=== PATIENT | female | born 1985 | race American Indian/Alaskan Native ===

== ENCOUNTER 2017-06-16 13:42 | Emergency (ER) | payer OTHER ==
[~2017-06-16] VITALS: Ht 157.5 cm; Wt 62.1 kg
[~2017-06-16 13:42] MED LIST: PRENATAL VITAM1 EAC7 PO
--- OUTSIDE RECORDS SUMMARY | 2017-06-16 14:28 | XMS | Clinical Summary ---
Demographics + + + | Address | [address] [facility] [address] | | | [place] [address] | + + + | Home Phone | | + + + | Preferred Language | Unknown | + + + | Marital Status | Domestic Partner | + + + | Mandaeism Affiliation | None | + + + | Race | Other Race | + + + | Ethnic Group | Not or | + + + Author + + + | Author | [facility] | + + + | Organization | [facility] | + + + | Address | Unknown | + + + | Phone | Unavailable | + + + Support + + + + + | Name | Relationship | Address | Phone | + + + + + | Elia Mercedes | ECON | [address] | | | | | [place] | | | | | [phone] | | + + + + + Care Team Providers + +------+ + | Care Commissions Analyst Name | Role | Phone | + +------+ + | None Per Patient, None Per | PP | Unavailable | | Pt | | | + +------+ + Allergies + + + + + + | Active Allergy | Reactions | Severity | Noted | Comments | | | | | Date | | + + + + + + | Cephalexin | Nausea Only | Low | 09/26/19 | | | | | | 13 | | + + + + + + Current Medications + + +---------+---------+------+------+-------+ | Prescription | Sig. | Disp. | Refills | Star | End | Statu | | | | | | t | Date | s | | | | | | Date | | | + + +---------+---------+------+------+-------+ | | Take 1 tablet by | | | | | Activ | | [id number]&Hfvbfmb-Kphu-W | mouth Daily. | | | | | e | | A 60 mg iron-1 mg | | | | | | | | tablet | | | | | | | + + +---------+---------+------+------+-------+ | oxyCODONE | Take 1 tablet by | 60 | 0 | 06/3 | | Activ | | (ROXICODONE) 5 mg | mouth Every 4 Hours | tablet | | 0/20 | | e | | immediate release | As Needed for Pain. | | | 13 | | | | tablet | | | | | | | + + +---------+---------+------+------+-------+ | docusate sodium | Take 1 capsule by | 60 | 0 | 06/3 | | Activ | | (COLACE) 100 mg | mouth 2 Times Daily | capsule | | 0/20 | | e | | capsule | As Needed for | | | 13 | | | | | Constipation. | | | | | | + + +---------+---------+------+------+-------+ | ibuprofen | Take 1 tablet by | 60 | 0 | 06/3 | | Activ | | (ADVIL;MOTRIN) 800 | mouth Every 8 Hours | tablet | | 0/20 | | e | | mg tablet | As Needed for Pain. | | | 13 | | | + + +---------+---------+------+------+-------+ | docusate sodium | Take 1 capsule (100 | 30 | 0 | 06/1 | | Activ | | (COLACE) 100 mg | mg total) by mouth 2 | capsule | | 5/20 | | e | | capsule | times daily. Hold | | | 16 | | | | | for loose stool | | | | | | + + +---------+---------+------+------+-------+ | ibuprofen | Take 1 tablet (800 | 100 | 1 | 06/1 | | Activ | | (ADVIL;MOTRIN) 800 | mg total) by mouth | tablet | | 5/20 | | e | | mg tablet | every 8 hours as | | | 16 | | | | | needed | | | | | | + + +---------+---------+------+------+-------+ | | Take 1-2 tablets by | 40 | 0 | 06/1 | | Activ | | oxyCODONE-acetaminop | mouth every 6 hours | tablet | | 5/20 | | e | | hen (PERCOCET) 5-325 | as needed | | | 16 | | | | mg per tablet | | | | | | | + + +---------+---------+------+------+-------+ | labetalol | Take 1 tablet (100 | 60 | 0 | 06/1 | | Activ | | (NORMODYNE) 100 mg | mg total) by mouth 2 | tablet | | 5/20 | | e | | tablet | times daily | | | 16 | | | + + +---------+---------+------+------+-------+ Active Problems + + + | Problem | Noted Date | + + + | Premature separation of placenta, with delivery | 09/25/2012 | + + + | Abnormality in heart rate/rhythm, delivered, with or | 09/25/2012 | | without mention of antepartum condition | | + + + | Other known or suspected abnormality, not elsewhere | 09/25/2012 | | classified, affecting management of mother, with delivered | | + + + | delivery delivered | 09/25/2012 | + + + | Anemia due to blood loss | 09/25/2012 | + + + + + | Overview: Anemia from loss at in the setting of | | anemia of . | + + Social History + + + +--------+------+ | Tobacco Use | Types | Packs/Day | Years | Date | | | | | Used | | + + + +--------+------+ | Current Some Day | Cigarettes | 0.1 | 10 | | | Smoker | | | | | + + + +--------+------+ + +---+---+---+ | Smokeless Tobacco: | | | | | Never Used | | | | + +---+---+---+ + + +---------+ + | Alcohol Use | Drinks/We | oz/Week | Comments | | | ek | | | + + +---------+ + | No | 0 | 0.0 | | | | Standard | | | | | drinks or | | | | | | | | | | equivalen | | | | | t | | | + + +---------+ + + + + | Sex Assigned at | Date Recorded | | | | + + + | Not on file | | + + + Last Filed Vital Signs + + + + | Vital Sign | Reading | Time Taken | + + + + | Blood Pressure | 139/86 | 09/12/2015 5:02 AM PDT | + + + + | Pulse | 80 | 09/29/2012 7:00 AM PDT | + + + + | Temperature | 36.7 C (98.1 F) | 09/12/2015 5:02 AM PDT | + + + + | Respiratory Rate | 15 | 09/12/2015 5:02 AM PDT | + + + + | Oxygen Saturation | 99% | 09/12/2015 5:02 AM PDT | + + + + | Inhaled Oxygen | - | - | | Concentration | | | + + + + | Weight | 66.7 kg (147 lb) | 09/12/2015 5:02 AM PDT | + + + + | Height | 157.5 cm (5' 2") | 09/12/2015 5:02 AM PDT | + + + + | Body Mass Index | 26.89 | 09/12/2015 5:02 AM PDT | + + + + Plan of Treatment + + + + + | Health Maintenance | Due Date | Last Done | Comments | + + + + + | Tobacco Cessation | | | | | Counseling | 7 | | | + + + + + | HIV Screening | | | | | | 0 | | | + + + + + | Tetanus | | | | | | 4 | | | + + + + + | Cervical Cancer | | | | | Screening | 6 | | | + + + + + | IMM Influenza (#1) | | | | | | 7 | | | + + + + + Results Not on filefrom Last 3 Months Insurance + +--------+ +--------+ + + | Payer | Benefi | Subscriber | Type | Phone | Address | | | t Plan | ID | | | | | | / | | | | | | | Group | | | | | + +--------+ +--------+ + + | [employer] | [employer] | [id number] | Medica | [phone] [address] | | | MOD[place] | | id | [id number] | [place], [place] | | | ODS | | | | [phone] | + +--------+ +--------+ + + + +--------+ +--------+ + + | Guarantor Name | Accoun | Relation to | Date | Phone | Billing Address | | | t Type | Patient | of | | | | | | | | | | + +--------+ +--------+ + + | LESA LOVE | Person | Self [birth year] | Home: | [address] | | | [place] | | 1985 | [phone] | [place] [address] | | | [place] | | | [phone] | | + +--------+ +--------+ + + Advance Directives Patient has advance directives. For more information, please contact:[email or web address] [facility] [place] [address]
--- OUTSIDE RECORDS SUMMARY | 2017-06-16 14:28 | XMS | Clinical Summary ---
Demographics + + + | Address | [address] | | | [place] [address] | + + + | Home Phone | | + + + | Preferred Language | Unknown | + + + | Marital Status | Domestic Partner | + + + | Temple Affiliation | None | + + + [...] [place] | | | | | [phone] | | + + + + + Care Team Providers + +------+ + | Care Banking Assistant Name | Role | Phone | + [...] | | | | Activ | | [id number]&Ahjhhrn-Huys-L | mouth Daily. | | | | [...] [employer] | [employer] | [id number] | Medica | [phone] | [address] | | | MOD[place] | | id | [id number] | [place], [place] | | | ODS | | | | [phone] | + +--------+ +--------+ + + + +--------+ +--------+ + + | Guarantor Name | Accoun | Relation to | Date | Phone | Billing Address | | | t Type | Patient | of | | | | | | | | | | + +--------+ +--------+ + + | LESA LOVE | Person | Self | [birth year] | Home: | [address] [facility] | | | [place] | | 1985 | [phone] | [place] [address] | | | [place] | | | [phone] | | + +--------+ +--------+ + + Advance Directives Patient has advance directives. For more information, please contact:#[email or web address] [facility] [place] [address]
== END 2017-06-16 16:21 | disposition home or self-care (01) ==
LOC: ED 13:42
DX: O21.9 Vomiting of pregnancy, unspecified (principal); O99.89 Other specified diseases and conditions complicating pregnancy, childbirth and the puerperium; R05 Cough; O99.331 Smoking (tobacco) complicating pregnancy, first trimester; F17.200 Nicotine dependence, unspecified, uncomplicated; Z88.1 Allergy status to other antibiotic agents
CPT/HCPCS: 71046; 80053; 81001; 83690; 84703; 85025; 87502; 96374; 99283; J2405; J7120

== ENCOUNTER 2018-08-22 19:31 | Observation (INO) | payer OTHER ==
[~2018-08-22] VITALS: Ht 157.5 cm; Wt 67.1 kg
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
--- NOTE | 2018-08-22 23:22 | NUR ---
ADMISSION COMPLETED. PATIENT ORIENTED TO ROOM. FLOOR, AND CALL LIGHT. ALL PATIENTS QUESTIONS ANSWERED. PATIENT DENIES ANY NEEDS AT THIS TIME. MERRICK PATIENTS PRIMARY RN IS IN THE ROOM TO ASSES PATIENT AT THIS TIME. CALL LIGHT IN REACH.
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
--- NOTE | 2018-08-23 02:49 | NUR ---
REPOSITIONED IN BED, C/O MILD ABD CRAMPING, NO VAGINAL BLEEDING NOTED, F/C PATENT, VOIDING LARGE AMOUNT OF CLEAR URINE. AWAKE, DENIES NEED FOR PAIN MEDS AT THIS TIME, CONTINUES TO DECLINE SCDS LEGS ARE VERY TENDER. LACERATION L ELBOW, R INNER KNEE AREA, AND SCRAPES ALL OVER ARMS AND LEGS HEALING. TOLERATING CLEAR LIQUIDS WELL. NO REQUETS, COOPERATIVE WITH ASSESSMENT.
--- NOTE | 2018-08-23 06:02 | NUR ---
DR SALCEDO NOTIFIED VIA PHONE R/T CLARIFICATION OF MOTRIN ORDER AND CXR PT IS . 'OK DC MOTRIN, YES DO GET CXR I ORDER IR". DI DEPT NOTIFIED. PT NOTIFIED, CONTINUES TO C/O VERY TENDER/PAINFUL LEGS WITH TOUCH, STILL DECLINING SCDS. TOLERATING CLEAR FLUIDS
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
--- NOTE | 2018-08-23 06:56 | NUR ---
back from di. c/o 08/06 generalized pain, medicated with morphine 4mg IV.
--- NOTE | 2018-08-23 07:45 | NUR ---
REPORT RECEIVED FROM FRACISCO SIN. PT AWAKE AND TALKING. DENIES ABD. PAIN. PT REFUSES SCD'S, STATES HER LEGS ARE TOO PAINFUL. REMINDED OF IMPORTANCE OF THEM. CASTILLO DRAINING LIGHT YELLOW URINE.
--- NOTE | 2018-08-23 08:34 | NUR ---
PATIENT IN BED RESTING, REFUSED TO GET UP TO CHAIR. CALL LIGHT IN REACH. NO FURTHER NEEDS AT THIS TIME.
--- NOTE | 2018-08-23 09:08 | NUR ---
CALLED PHARM TO VERIFY PEPCID WAS SAFE TO GIVE IN 1ST TRIMESTER. GILMAR PRINTED OUT LITURATURE THAT IT WAS.
--- NOTE | 2018-08-23 09:21 | NUR ---
ADMINISTERED MORNING MEDS. PT STATES SHE IS FEELING OK AND APPEARS DROWSY STILL. PT DENIES CRAMPING OR BLEEDING, NONE NOTED.
--- NOTE | 2018-08-23 09:44 | NUR ---
NOTIFIED [place] [employer]...CALLED [place] [employer] H[employer] MANDATORY ASSOCIATE PROFESSOR OF CRIMINAL JUSTICE TO REPORT PT HAVING POSITIVE LABS FOR ETOH, THC AND METH, WHILE 9 MONTHS . SPOKE WITH SAYRA JEONG.
--- NOTE | 2018-08-23 10:12 | NUR ---
PT AWAKE AND ASKING FOR FOOD. GIVEN JELLO AND CHICKEN BROTH. PT STATES SHE FEELS "OK" AND DENIES FURTHER CONCERNS. CONTINUES TO DECLINE CLEANING OF ELBOW AND SCD'S DUE TO PAIN.
--- NOTE | 2018-08-23 10:46 | NUR ---
PFATIENT IN BED RESTING WITH EYES CLOSED. FRESH WATER GIVEN. CALL LIGHT IN REACH. NO FURTHER NEEDS AT THIS TIME.
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
--- NOTE | 2018-08-23 12:12 | NUR ---
ATTEMPTED TO SEE PATIENT FOR PHYSICAL THERAPY EVALUATION REQUESTED BY DR. SALCEDO. PATIENT DECLINED AT THIS TIME AND REQUEST THERAPY RETURN LATER. WILL ATTEMPT TO SEE PATIENT LATER.
--- NOTE | 2018-08-23 12:23 | NUR ---
REMOVED CASTILLO WNL. SL. ADVISED PT TO CALL STILL IF SHE NEEDS TO GET UP.
--- NOTE | 2018-08-23 14:25 | NUR ---
PT DENIES CONCERNS ATT. SL. BLACKMAN.
--- NOTE | 2018-08-23 14:33 | NUR ---
PATIENT IN BED RESTING WITH EYES CLOSED. FRESH WATER GIVEN. CALL LIGHT IN REACH. NO FURTHER NEEDS AT THIS TIME.
--- NOTE | 2018-08-23 16:10 | NUR ---
PATIENT BACK TO BED FROM SHOWER, INDEPENDENT. LINENS CHANGED. CALL LIGHT IN REACH. NO FURTHER NEEDS AT THIS TIME.
--- NOTE | 2018-08-23 17:26 | NUR ---
PT PAIN WELL CONTROLLED TODAY. NO VAGINAL BLEEDING NOTED. NO CRAMPING REPORTED. PT SHOWERED. SL. RA. MULTIPLE CUTS AND ABRASIONS WNL. SHOULD DC TOMORROW.
--- NOTE | 2018-08-23 18:21 | NUR ---
PATIENT IN BED RESTING WITH EYES CLOSED. FRESH WATER GIVEN. CALL LIGHT I REACH. NO FURTHER NEEDS AT THIS TIME.
--- NOTE | 2018-08-23 19:15 | NUR ---
CHARGE NURSE REPORT RECEIVED. PT WITH NO NEEDS AT THIS TIME.
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
--- NOTE | 2018-08-23 20:40 | NUR ---
IN TO CHECK ON PT. PT TEARY AND EMOTIONAL, PT EXPRESSED CONCERN FOR WELL-BEING. STATES SHE IS STILL HAVING LOWER ABDOMINAL CRAMPING. NO VAGINAL BLEEDING NOTED. PT REQUESTS PRN PAIN MEDICATION FOR C/O BEING SORE "ALL OVER". ASSESSMENT COMPLETE. MULTIPLE ABRASIONS NOTED ON ALL EXTREMITIES. PATIENT EATING ICE CREAM AND SANDWHICH. NO OTHER QUESTIONS OR CONCERNS AT THIS TIME. CALL LIGHT IN REACH.
--- NOTE | 2018-08-23 20:51 | NUR ---
REQUESTED AND RECEIVED WARM BLANKET AND HOT PACK. NO OTHER NEEDS AT THIS TIME.
--- NOTE | 2018-08-23 21:43 | NUR ---
PATIENTS VITALS TAKEN AND RECORDED. INTAKE AND OUPUT RECORDED. CAROLYNE BLANCHARD RN IN THE ROOM.
--- NOTE | 2018-08-23 22:32 | NUR ---
PT UP TO VOID 500 ML YELLOW URINE INDEPENDENTLY. NO BLOOD NOTED. PT STATES PRN TYLENOL DIDN'T REALLY HELP WITH PAIN BUT DOES NOT WANT ANYTHING ADDITIONAL RIGHT NOW. CALL LIGHT IN REACH.
--- NOTE | 2018-08-24 01:17 | NUR ---
PT IN BED RESTING WITH EYES CLOSED. RR EVEN AND UNLABORED. BILATE LE ELEVATED. CALL LIGHT IN REACH.
--- NOTE | 2018-08-24 04:20 | NUR ---
PT UP TO BR INDEPENDENTLY TO VOID 300 ML YELLOW URINE. BACK TO BED. PT C/O 09/06 GENERALIZED PAIN. MEDICATED WITH PRN PAIN MED. PT DENIES ABD CRAMPING OR VAGINAL BLEEDING. CALL LIGHT IN REACH.
--- NOTE | 2018-08-24 05:23 | NUR ---
PT RESTED WELL THROUGHOUT THE SHIFT. MEDICATED WITH PRN TYLENOL X 2. PT UP TO BR WITH MINIMAL ASSIST, STEADY GAIT. NO VAGINAL BLEEDING NOTED, PT DENIES ABDOMINAL CRAMPING THIS AM. AT TIMES PT TEARY AND CONCERNED FOR THE WELL-BEING OF HER PREGRNANCY. PT ON REG DIET, NEEL WELL.
--- NOTE | 2018-08-24 07:33 | NUR ---
Pt in bed at this time, alert and oriented x3. Pt denies pain at this time. Pt voiding q/s. Pt denies needs at this time. Personal supplies and call light within reach. No needs.
--- NOTE | 2018-08-24 09:27 | NUR ---
PT DECLINED AM PEPCID DOSE.
--- NOTE | 2018-08-24 09:49 | NUR ---
PATIENT IN BED RESTING WITH EYES CLOSED. CALL LIGHT IN REACH. NO FURTHER NEEDS AT THIS TIME.
--- NOTE | 2018-08-24 10:32 | NUR ---
PT AMBULATED IN HALLWAY WITH PT THIS AM, TOLERATED WELL. PT HAS NO NEEDS.
[2018-08-24] MEDS ORDERED: TYLENOL325 MG PO (11:16)
[2018-08-24] MEDS ORDERED: PRENATAL 19 CH1 EAC1 PO (11:17)
== END 2018-08-24 11:45 | disposition home or self-care (01) ==
LOC: ED 19:31 → MS 19:32
PROVIDERS: ADMIT Surgery
DX: S81.011A Laceration without foreign body, right knee, initial encounter (principal); S00.83XA Contusion of other part of head, initial encounter; V48.6XXA Car passenger injured in noncollision transport accident in traffic accident, initial encounter; F17.200 Nicotine dependence, unspecified, uncomplicated; F10.129 Alcohol abuse with intoxication, unspecified; Y90.6 Blood alcohol level of 120-199 mg/100 ml; F15.129 Other stimulant abuse with intoxication, unspecified; Z33.1 Pregnant state, incidental; Z88.1 Allergy status to other antibiotic agents
CPT/HCPCS: 36415; 51702; 70450; 71045; 71046; 72125; 73080; 73560; 74177; 80053; 81001; 82150; 82247; 82465; 82550; 83615; 83690; 84100; 84478; 84550; 84702; 85025; 85610; 85730; 86850; 86900; 86901; 90471; 90715; 96374; 96375; 96376; 97161; 99285-25; G0378; G0480; J2270; J7030; J7120; Q9967

== ENCOUNTER 2019-03-07 05:00 | Inpatient (IN) | payer OTHER ==
[~2019-03-07 05:00] MED LIST changes: +PRENATAL 19 CH1 EAC1 PO; +TYLENOL325 MG PO
--- NOTE | 2019-03-07 08:33 | NUR ---
03/07/19 0860 Lindsay Pacheco 8963 PT ARRIVED TO PACU ON RA, RESP EVEN AND UNLABORED. PT REACTIVE TO PAINFUL STIMULI AND SNORING OFF AND ON. VSS. IV INFUSING LR WITH 30 OF PIT.
--- NOTE | 2019-03-08 08:49 | PR ---
[facility] [address] [facility] [place], [place] [address] Signed PP Progress Notes Datetime Report Generated by CPN: 03/08/2019 08:49 SUBJECTIVE: [id number] Pain: Within normal limits Nausea/Vomiting: Denies Vital Signs: [id number] Vital Signs: Reviewed; Within Normal Limits Notable Details: PP HGb/Hct = 10.4/31.2 EXAM: [id number] Abdomen/Uterus: Normal Lochia: Normal Extremities: Normal Incision: Normal IMPRESSION/PLAN/PROCEDURES: [id number] Impression: Normal progression Other Impression: PP Anemia Plan: Continue present management Procedures: None Progress Notes: Doing well, without complalint, tolerating food, voiding without difficulty. Signing Physician: Marquise Cheema MD Copies: ~ *Electronically Signed* 03/08/19 0849 MARQUISE CHEEMA MD PATIENT NAME: LE LOVE PROGRESS NOTE DATE OF : [birth year] PHYSICIAN: MARQUISE CHEEMA MD RPT #: [id number] REPORT IS CONFIDENTIAL AND NOT TO BE RELEASED WITHOUT AUTHORIZATION
--- NOTE | 2019-03-08 09:01 | OR ---
[facility] [address] [place], [place] [address] Signed DATE OF OPERATION: 03/07/2019 SURGEON: Ludin Esteves MD Patient of Dr. Esteves. PREOPERATIVE DIAGNOSES: Previous section, term labor, recent methamphetamine use. POSTOPERATIVE DIAGNOSES: Previous section, term labor, recent methamphetamine use, and thick meconium. PROCEDURE: Repeat low transverse segment section. Delivery of live female infant. HAT BRIM CURLER: Dr. Barrios. ANESTHESIA: Spinal. ESTIMATED BLOOD LOSS: 650 mL. COMPLICATIONS: None. DRAINS: Briceno to bladder. FINDINGS: Live female , Apgars 4 / 8 / 9. Weight 5 pounds 3 ounces. There was a nuchal cord around the neck with a ricardo-cross behind the shoulder and under the arm, all of which was quite tight. There was thick particulate meconium present. The infant was in vertex presentation. The uterus was normal. The left tube showed evidence of previous partial salpingectomy with proximal portion of the tube apparently missing. The distal portion of the tube was adherent to the left pelvic sidewall. Left ovary was normal size and shape without any adhesions. The right tube and ovary were normal. There was some omental adhesion. This was approximately at the level of the umbilicus off to the Electronically Signed By: LUDIN ESTEVES MD 03/08/19 0901 PATIENT NAME: LE LOVE OPERATIVE REPORT DATE OF : [birth year] REPORT #: [id number] PHYSICIAN: LUDIN ESTEVES MD PCP: NO PRIMARY CARE PHYSICIAN REPORT IS CONFIDENTIAL AND NOT TO BE RELEASED WITHOUT AUTHORIZATION [facility] [address] [place], [place] [address] Signed left side out of the way of the procedure. DESCRIPTION OF PROCEDURE: The patient was brought to the operating room, placed in supine position. After adequate spinal anesthesia was obtained, she was prepped and draped in usual sterile fashion. Briceno catheter was placed in the bladder. A Pfannenstiel skin incision was made through previous surgical scar using a scalpel. Subcutaneous tissue was dissected with scalpel and Bovie. The fascia was nicked with scalpel and extended in transverse fashion using curved scissors. The underlying abdominal musculature was bluntly and sharply from the fascia above and below the incision. The abdominal musculature was bluntly and sharply along the midline. The peritoneum was grasped with two hemostats, elevated, nicked with scissors and extended in vertical fashion using curved scissors. The Sanchez self-retaining retractor was inserted into the incision and tightened in place. The lower uterine segment was identified. The lower uterine segment carefully nicked with scalpel and incision extended in transverse fashion using finger dissection. Bulging bag of meconium fluid came from the incision. This was opened with pickups with teeth. The 's head was delivered from the incision. The cord was removed from around the neck and under the arm and around the back with slight difficulty. Rest of the then easily delivered and the cord quickly doubly clamped and cut. The infant passed off the table to the awaiting nurse and respiratory therapist. The cord gases were obtained. The placenta was then manually removed and uterine cavity explored with a lap pad to remove any retained membranes. An angle stitch of 0 Monocryl was placed at one end of the incision and a running locking stitch of 0 Monocryl starting at the other end used to close the incision. A 2nd running stitch of 0 Monocryl was used to imbricate the 1st layer. Still some bleeding at the right angle, which was controlled with two jwfjss-ja-dgzty stitches of 0 Monocryl. When good hemostasis was obtained, the entire pelvis was irrigated, suctioned, examined, and any bleeding spots cauterized with the Bovie. There was some light oozing and raw edges from the dissection of the lower segment and so Tisseel was applied to the raw edges to help with hemostasis and good hemostasis was obtained. The Sanchez retractor was removed and sheet of ACell placed over the lower uterine segment to help with healing. The anterior wall peritoneum was then closed using running stitch of 2-0 Vicryl suture. The abdominal musculature was reapproximated using interrupted stitches of 0 Vicryl suture. The entire abdominal wall was irrigated, suctioned, examined, and any bleeding spots cauterized with the Bovie. Rest of the Tisseel was placed over the abdominal musculature again to help with hemostasis, and the abdominal wall incision sprinkled with powdered ACell to help with healing. When good hemostasis was obtained, the fascia was closed using two running stitches of 0 Vicryl suture meeting in the midline. Subcutaneous tissue was irrigated, suctioned, examined, and any bleeding spots cauterized with the Bovie. Subcutaneous tissue was closed using interrupted stitches of 3-0 Vicryl suture and skin reapproximated using skin clips. The patient tolerated the procedure well, went to recovery room in good condition. The Electronically Signed By: LUDIN ESTEVES MD 03/08/19 0901 PATIENT NAME: LE LOVE [facility] OPERATIVE REPORT DATE OF : [birth year] REPORT #: [id number] PHYSICIAN: LUDIN ESTEVES MD PCP: NO PRIMARY CARE PHYSICIAN REPORT IS CONFIDENTIAL AND NOT TO BE RELEASED WITHOUT AUTHORIZATION [facility] [address] [place], [place] [address] Signed sponge, needle, and instrument count correct at the end of the procedure. MD SALOME Chambers/MODL /[id number] Copies: ~ Electronically Signed By: LUDIN ESTEVES MD 03/08/19900 PATIENT NAME: LE LOVE OPERATIVE REPORT DATE OF : [birth year] REPORT #: [id number] PHYSICIAN: LUDIN ESTEVES MD PCP: NO PRIMARY CARE PHYSICIAN REPORT IS CONFIDENTIAL AND NOT TO BE RELEASED WITHOUT AUTHORIZATION
--- NOTE | 2019-03-09 08:19 | PR ---
[facility] [address] [place] [address] Signed PP Progress Notes Datetime Report Generated by CPN: 03/09/2019 08:19 SUBJECTIVE: [id number] Pain: Within normal limits Nausea/Vomiting: Denies Vital Signs: [id number] Vital Signs: Reviewed; Within Normal Limits Notable Details: PP HGb/Hct = 10.4/31.2 EXAM: [id number] Abdomen/Uterus: Normal Lochia: Normal Extremities: Normal Incision: Normal IMPRESSION/PLAN/PROCEDURES: [id number] Impression: Normal progression Other Impression: PP Anemia Plan: Discharge Procedures: None Progress Notes: Doing well, without compalint, wants to go home. Signing Physician: Marquise Cheema MD Copies: ~ *Electronically Signed* 03/09/19 0819 MARQUISE CHEEMA MD PATIENT NAME: LE LOVE PROGRESS NOTE DATE OF : [birth year] PHYSICIAN: MARQUISE CHEEMA MD RPT #: [id number] REPORT IS CONFIDENTIAL AND NOT TO BE RELEASED WITHOUT AUTHORIZATION
== END 2019-03-09 09:15 | disposition home or self-care (01) | DRG 787 ==
LOC: FBCO 05:00 → FBC 05:59
PROVIDERS: ADMIT General Practice
PROC: 10D00Z1 Extraction of Products of Conception, Low, Open Approach (ICD-10-PCS; principal; 2019-03-07 08:45)
DX: O34.211 Maternal care for low transverse scar from previous cesarean delivery (principal); O99.324 Drug use complicating childbirth; O98.32 Other infections with a predominantly sexual mode of transmission complicating childbirth; N85.8 Other specified noninflammatory disorders of uterus; Z3A.39 39 weeks gestation of pregnancy; Z37.0 Single live birth; F12.90 Cannabis use, unspecified, uncomplicated; F15.90 Other stimulant use, unspecified, uncomplicated; O99.334 Smoking (tobacco) complicating childbirth; F17.210 Nicotine dependence, cigarettes, uncomplicated; O77.0 Labor and delivery complicated by meconium in amniotic fluid; O69.1XX0 Labor and delivery complicated by cord around neck, with compression, not applicable or unspecified; O32.2XX0 Maternal care for transverse and oblique lie, not applicable or unspecified; A60.00 Herpesviral infection of urogenital system, unspecified; O90.81 Anemia of the puerperium; D64.9 Anemia, unspecified; Z88.1 Allergy status to other antibiotic agents; Z79.899 Other long term (current) drug therapy; Z88.2 Allergy status to sulfonamides; Z86.19 Personal history of other infectious and parasitic diseases
CPT/HCPCS: 01961; 36415; 81050; 82565; 82570; 82803; 84156; 84450; 84520; 84550; 85025; 85027; A9270; J0690; J1200; J2250; J2270; J2274; J2300; J2405; J2550; J2590; J2765; J7121

== ENCOUNTER 2019-10-28 20:51 | Emergency (ER) | payer OTHER ==
[~2019-10-28] VITALS: Ht 157.5 cm; Wt 56.7 kg
--- NOTE | 2019-10-29 13:13 | EKG ---
[facility] [address] [facility] [place], [place] [address] Signed Sinus tachycardia Possible Left atrial enlargement Nonspecific ST abnormality Abnormal ECG No previous ECGs available Confirmed by RUBÉN JALLOH DO ([id number]) on 10/29/2019 1:13:01 PM Electronically Signed By: RUBÉN JALLOH DO 10/29/19 1313 PATIENT NAME: LE LOVE APPLE Electrocardiogram DATE OF : 83 PHYSICIAN: RUBÉN JALLOH DO REPORT #: [id number] REPORT IS CONFIDENTIAL AND NOT TO BE RELEASED WITHOUT AUTHORIZATION
--- NOTE | 2019-10-30 22:17 | PATH ---
[facility] [address] [facility] [place] [address] Signed ORDERING PHYSICIAN: Mitesh Basurto MD PATIENT NAME: LE LOVE GENDER: Gerry : 1985 SPECIMEN(S): MOLECULAR PATHOLOGY RESULTS: SARS-CoV-2 Not Detected ADDITIONAL NOTES.: The Bouse Fusion SARS-CoV-2 Assay is a multiplex real-time PCR (RT-PCR) in vitro diagnostic test intended for the qualitative detection of RNA from SARS-CoV-2 from individuals who meet COVID-19 clinical and/or epidemiological criteria. In general, SARS-CoV-2 RNA can be detected during the acute phase of infection. Positive results indicate the presence of SARS-CoV-2 RNA. Clinical correlation with patient history and other diagnostic information is necessary to determine patient infection status. Positive results do not rule out bacterial infection or co-infection with other viruses. Negative results do not preclude SARS-CoV-2 infection and should not be used as the sole basis for patient management decisions. Negative results must be combined with other clinical observations, patient history, and epidemiological information. The Bouse Fusion SARS-CoV-2 Assay is not yet approved or cleared by the [place] FDA. When there are no FDA-approved or cleared tests available, and other criteria are met, FDA can make tests available under an emergency access mechanism called an Emergency Use Authorization (EUA). The EUA for this test is supported by the [place] of Health and Human Service's (HHS's) declaration that circumstances exist to justify the emergency use of in vitro diagnostics for the detection and/or diagnosis of the virus that causes COVID-19. This EUA will remain in effect for the duration of the COVID-19 declaration justifying emergency of IVDs, unless it is terminated or revoked by FDA, after which the test may no longer be used. The Bouse Fusion SARS-CoV-2 Assay is for use only under EUA in US laboratories certified under the Clinical Laboratory Improvement Amendments of 1988 (CLIA) to perform high complexity tests. [facility] is certified under CLIA to perform high complexity PATIENT NAME: LE LOVE MARSHA PATHOLOGY DATE OF : [birth year] REPORT #: [id number] PHYSICIAN: JAMIE WEAVER PCP: NO PRIMARY CARE PHYSICIAN REPORT IS CONFIDENTIAL AND NOT TO BE RELEASED WITHOUT AUTHORIZATION [address] [address] Signed clinical laboratory testing. PERFORMING LABORATORY.: Molecular testing was performed by [facility] [place] [address] (Multi Media Specialist: Dominic Hutchinson D.O.; CLIA#: [id number]) Diagnostician: System Interface Pathologist Electronically Signed 10/30/2019 Copies: ~ PATIENT NAME: LE LOVE APPLE PATHOLOGY DATE OF : [birth year] REPORT #: [id number] PHYSICIAN: JAMIE WEAVER PCP: NO PRIMARY CARE PHYSICIAN REPORT IS CONFIDENTIAL AND NOT TO BE RELEASED WITHOUT AUTHORIZATION
== END 2019-10-29 08:59 | disposition home or self-care (01) ==
LOC: ED 20:51
DX: R06.02 Shortness of breath (principal); R50.9 Fever, unspecified; F15.90 Other stimulant use, unspecified, uncomplicated; R79.1 Abnormal coagulation profile; F17.200 Nicotine dependence, unspecified, uncomplicated; Z88.1 Allergy status to other antibiotic agents; Z88.2 Allergy status to sulfonamides
CPT/HCPCS: 71045; 71260; 80053; 81001; 83605; 83690; 83735; 84703; 85025; 85379; 93005; 93010; 96361; 99285-25; C9803; J2060; J7030; Q9967

== ENCOUNTER 2019-10-31 12:38 | Emergency (ER) | payer OTHER ==
[~2019-10-31] VITALS: Ht 157.5 cm; Wt 55.8 kg
--- OUTSIDE RECORDS SUMMARY | 2019-10-31 12:40 | XMS ---
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 - 2 Visits in 30 Days CARE PROVIDERS There are no care providers on record at this time. Angel has no Care Guidelines for this patient. Charles VISIT COUNT (12 MO.) 1 Avinash Stephens [address] [place], [place] [address] TOTAL 3 NOTE: Visits indicate total known visits. ED/UCC VISIT TRACKING (12 MO.) 10/31/2019 12:38 GRISEL Capone [place] TYPE: Emergency COMPLAINT: - ABD PAIN 10/28/2019 20:51 [facility] [place] TYPE: Emergency COMPLAINT: - BODY ACHES,SOB 11/16/2018 12:08 Avinash Hernandez [place] TYPE: Emergency DIAGNOSES: - 22 weeks gestation of - Acute upper respiratory infection, unspecified - SOB INPATIENT VISIT TRACKING (12 MO.) 03/07/2019 05:59 GRISEL Capone [place] TYPE: [facility] COMPLAINT: - LABOR DIAGNOSES: - Labor and delivery complicated by cord around neck, with comp - Other infections with a predominantly sexual mode of transmis - Cannabis use, unspecified, uncomplicated - Maternal care for transverse and oblique lie, not applicable - Herpesviral infection of urogenital system, unspecified - Nicotine dependence, cigarettes, uncomplicated - Personal history of other infectious and parasitic diseases - Maternal care for transverse and oblique lie, not applicable - Drug use complicating childbirth - Allergy status to sulfonamides status - Other specified noninflammatory disorders of uterus - Smoking (tobacco) complicating childbirth - Maternal care for low transverse scar from previous - Nicotine dependence, cigarettes, uncomplicated - Herpesviral infection of urogenital system, unspecified - Anemia, unspecified - Allergy status to other antibiotic agents status - Labor and delivery complicated by cord around neck, with comp - 39 weeks gestation of - Other oil heaterman (current) drug therapy - Other intermediate (current) drug therapy - Anemia of the puerperium - Other stimulant use, unspecified, uncomplicated - Other infections with a predominantly sexual mode of transmis - Anemia, unspecified - Labor and delivery complicated by meconium in amniotic fluid - Anemia of the puerperium - Single live - Other stimulant use, unspecified, uncomplicated - Drug use complicating childbirth - Single live - Allergy status to sulfonamides status - Cannabis use, unspecified, uncomplicated - Other specified noninflammatory disorders of uterus - Allergy status to other antibiotic agents status - Labor and delivery complicated by meconium in amniotic fluid - 39 weeks gestation of - Smoking (tobacco) complicating childbirth - Personal history of other infectious and parasitic diseases [email or web address]
[2019-10-31] MEDS ORDERED: CIPRO500 MG PO (16:39)
== END 2019-10-31 17:39 | disposition home or self-care (01) ==
LOC: ED 12:38
DX: N39.0 Urinary tract infection, site not specified (principal); F17.200 Nicotine dependence, unspecified, uncomplicated; Z88.1 Allergy status to other antibiotic agents; Z88.2 Allergy status to sulfonamides; Z88.8 Allergy status to other drugs, medicaments and biological substances
CPT/HCPCS: 71045; 74177; 80053; 81001; 82150; 83690; 84703; 85025; 87077; 87088; 87186; 96361; 96375; 99284-25; J1885; J2405; J7030; Q9967

== ENCOUNTER 2021-10-19 18:32 | Emergency (ER) | payer OTHER ==
[~2021-10-19] VITALS: Ht 157.5 cm; Wt 62.1 kg
[~2021-10-19 18:32] MED LIST changes: +CIPRO500 MG PO
[2021-10-19] MEDS ORDERED: AZESCO TABLET1 EACH PO (21:04)
--- NOTE | 2021-10-20 06:38 | EKG ---
[facility] [address] [facility] [place] [address] Signed Normal sinus rhythm Normal ECG No previous ECGs available Confirmed by HERMINIO LANDAVERDE MD ([id number]) on 10/20/2021 6:38:34 AM Electronically Signed By: HERMINIO LANDAVERDE MD 10/20/21 0638 PATIENT NAME: LE LOVE APPLE Electrocardiogram DATE OF : [birth year] PHYSICIAN: HERMINIO LANDAVERDE MD REPORT #: [id number] REPORT IS CONFIDENTIAL AND NOT TO BE RELEASED WITHOUT AUTHORIZATION
== END 2021-10-19 21:23 | disposition home or self-care (01) ==
LOC: ED 18:32
DX: O99.891 Other specified diseases and conditions complicating pregnancy (principal); R10.13 Epigastric pain; O34.219 Maternal care for unspecified type scar from previous cesarean delivery; O10.912 Unspecified pre-existing hypertension complicating pregnancy, second trimester; O99.332 Smoking (tobacco) complicating pregnancy, second trimester; F17.200 Nicotine dependence, unspecified, uncomplicated; Z88.1 Allergy status to other antibiotic agents; Z88.2 Allergy status to sulfonamides; Z3A.16 16 weeks gestation of pregnancy
CPT/HCPCS: 36415; 76815; 80053; 83690; 84702; 85025; 93005; 93010

== ENCOUNTER 2021-10-30 09:06 | Inpatient (IN) | payer OTHER ==
[~2021-10-30] VITALS: Ht 157.5 cm; Wt 62.0 kg
[~2021-10-30 09:06] MED LIST changes: +AZESCO TABLET1 EACH PO
--- OUTSIDE RECORDS SUMMARY | 2021-10-30 09:16 | XMS ---
PreManage Notification: LE LOVE Security Transplant Registered Nurse Events 1 event(s) in the past 18 months Most recent security events: Elopement at [facility] 10/10/2020 18:29 - Other Details: PATIENT LWBS. CRITERIA MET - [facility] - 2 Visits in 30 Days CARE PROVIDERS There are no care providers on record at this time. Angel has no Care Guidelines for this patient. Care History Medical/Surgical 11/01/2019 [facility] - \T\middot;\T\nbsp; PATIENT WOULD BENEFIT FROM [facility]-PLEASE DISCUSS \T\middot;\T\nbsp; PLEASE CONTACT [facility]- IF PATIENT ACCEPTS SERVICES- [phone] \T\middot;\T\nbsp; [facility] CAN PROVIDE PATIENT WITH ELECTRICAL PROSPECTING OPERATOR AND HELP WITH COMMUNITY [employer]OURCES E.D. VISIT COUNT (12 MO.) 3 [facility]. TOTAL 3 NOTE: Visits indicate total known visits. ED/UCC VISIT TRACKING (12 MO.) 10/30/2021 09:08 [facility] [place] TYPE: Emergency COMPLAINT: - BLISTERED NIPPLE 10/28/2021 13:09 GR[facility] Capone [place] TYPE: Emergency COMPLAINT: - BLISTER UNDER NIPPLE 10/19/2021 18:33 GRIS[facility] Capone [place] TYPE: Emergency COMPLAINT: - CHEST PRESSURE, DIAGNOSES: - Smoking (tobacco) complicating , second trimester - Epigastric pain - Maternal care for unspecified type scar from previous delivery - Allergy status to sulfonamides - Nicotine dependence, unspecified, uncomplicated - Other specified diseases and conditions complicating - Allergy status to other antibiotic agents - Unspecified pre-existing hypertension complicating , second trimester - 16 weeks gestation of INPATIENT VISIT TRACKING (12 MO.) No inpatient visits to display in this time frame [email or web address]
--- NOTE | 2021-10-30 14:20 | NUR ---
10/30/21 1420 Jazmyne Coughlin 1352 PT ARRIVED IN PACU SLEEPY WITH WOUND VAC IN PLACE TO L BREAST. PT'S MOTHER AT BEDSIDE. 1400 TEARFUL. C/O 5/10 PAIN IN L BREAST. DECLINED PAIN MEDICATION AT THIS TIME. 1405 FHT'S IN LLQ 180-200'S. 1415 RESTING. REU.
--- NOTE | 2021-10-30 15:34 | HP ---
[facility] [address] [place], [place] [address] Signed ADMISSION DATE: 10/30/2021 REASON FOR ADMISSION: Advanced left breast abscess and cellulitis; concurrent problem 18 weeks gestation and concurrent new finding of Syphilis. HISTORY OF PRESENT ILLNESS: This 36-year-old woman is accompanied by her mother. 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 She has had at least 13 pregnancies and 4 living children. She was here in the emergency room on the 19 of October, [facility] and noted to be . An obstetric ultrasound performed showing infestation of 16 weeks. She has since been released and presents today with complaints of breast pain on the left side. She has had no drainage from the breast and denies any trauma to it. Examination by Dr. Florez, emergency room physician shows a very advanced breast abscess in the subareolar area inferiorly with secondary intense erythema of the remaining breast. The patient has had no fever or chills that we know of and no signs of systemic sepsis proper. Specimen collection on October 25, 2021 revealed she was nonreactive for HIV but reactive for treponemal antibody. Hepatitis panel was negative. The patient said she has had increasing erythema of the left breast for several days, possibly up to a week. She has had no actual drainage but has exquisite tenderness to the left breast. She denies any prior breast intervention specifically biopsy or other breast surgery or breast problem. SOCIAL HISTORY: She [facility] out of [facility]. She has methamphetamine addiction. She is accompanied by her mother at this time. She has four children. I do not believe any currently live with her. Her white blood cell count today is 13.5, elevated from 9.1 a few days ago. Platelet count is 431,000. Hematocrit is 34, potassium is low at 3.1. REVIEW OF SYSTEMS: She denies any shortness of breath or chest pain other than the left breast pain. She Electronically Signed By: DUANE SALCEDO MD 10/30/21 1534 PATIENT NAME: LE LOVE HISTORY AND PHYSICAL DATE OF : [birth year] REPORT #: [id number] PHYSICIAN: DUANE SALCEDO MD PCP: NO PRIMARY CARE PHYSICIAN REPORT IS CONFIDENTIAL AND NOT TO BE RELEASED WITHOUT AUTHORIZATION [facility] [address] [place], [place] [address] Signed has had no dysuria or hematuria. PHYSICAL EXAMINATION: GENERAL: A relatively thin woman who is alert and oriented, not systemically toxic, but uncomfortable. She is accompanied by her mother. NECK: Trachea is midline. CHEST: Shows normal respiratory excursion. HEART: Regular. BREASTS: Examination of the left breast shows intense erythema and edema of the breast in the inferior aspect in the periareolar area. Some skin necrosis and obvious high likelihood of abscess. Axilla was negative. ABDOMEN: Nondistended. EXTREMITIES: Show no clubbing, cyanosis, or edema. ASSESSMENT: The patient has findings consistent with a breast abscess on the left side with secondary cellulitis. Concurrent issues include intrauterine gestation of 18 weeks and found recently to be positive for Syphilis based on treponemal antibody that is reactive. Dr. Florez has conferred with Dr. Esteves, occupational medicine physician on-call, who notes the patient likely to follow with [facility] Obstetrics [facility] and a treatment plan for the Syphilis to include penicillin for two weeks and intramuscular injection. As regards to breast abscess, she would certainly not tolerate incision and drainage or debridement in any setting other than a general anesthetic. The risk of bleeding, infection, failure of the intended drainage to improve her situation and probable need for additional intravenous antibiotics for at least 24 hours, likely to include ultimately a more prolonged course of oral antibiotics was all reviewed in detail with her. Problematic are the issues related to her drug addiction as well as her . There are certainly risk to with anesthesia, but more so with ongoing infectious complications that she has developed with this abscess. She understands that as well. MD HAYLEY Norman/HARSHAD /[id number] Electronically Signed By: DUANE SALCEDO MD 10/30/21 1534 PATIENT NAME: LE LOVE HISTORY AND PHYSICAL DATE OF : [birth year] REPORT #: [id number] PHYSICIAN: DUANE SALCEDO MD PCP: NO PRIMARY CARE PHYSICIAN REPORT IS CONFIDENTIAL AND NOT TO BE RELEASED WITHOUT AUTHORIZATION [facility] [address] [place], [place] [address] Signed cc: Ludin Esteves MD [facility]/Dr. Dr. Florez Copies: LUDIN ESTEVES MD ~ Electronically Signed By: DUANE SALCEDO MD 10/30/21 1534 PATIENT NAME: LE LOVE [facility] HISTORY AND PHYSICAL DATE OF : [birth year] REPORT #: [id number] PHYSICIAN: DUANE SALCEDO MD PCP: NO PRIMARY CARE PHYSICIAN REPORT IS CONFIDENTIAL AND NOT TO BE RELEASED WITHOUT AUTHORIZATION
--- NOTE | 2021-10-30 15:34 | OR ---
[facility] [address], [place] [address] Signed DATE OF OPERATION: 10/30/2021 SURGEON: Duane Salcedo MD PREOPERATIVE DIAGNOSES: 1. Left breast necrotizing soft tissue infection with abscess and cellulitis (severe). 2. Multiple medical problems including intrauterine gestation 18 weeks, Syphilis methamphetamine addiction and positive COVID test. POSTOPERATIVE DIAGNOSES: 1. Left breast necrotizing soft tissue infection with abscess and cellulitis (severe). 2. Multiple medical problems including intrauterine gestation 18 weeks, Syphilis methamphetamine addiction and positive COVID test. PROCEDURES: 1. Exam under anesthesia. 2. Debridement of skin and soft tissue of left breast. 3. Drainage of large abscess. 4. Application of wound VAC device. ANESTHESIA: General endotracheal, Kristen Cantor CRNA INDICATIONS: This 36-year-old [place] woman has been seen in the emergency room today with severe cellulitic changes of the left breast and a large abscess and necrotizing soft tissue in the inferior aspect of the left areola. The patient has numerous medical problems including 18 week intrauterine gestation based on ultrasound performed in the past week at [facility] with abdominal pain. Additionally, she is noted on recent testing to have negative HIV test, but positive Syphilis test. Additionally, she has methamphetamine addiction ongoing. Testing today confirms he also has COVID. She has been fluid resuscitated, given intravenous antibiotic meropenem, anticipating benzathine penicillin G for her Syphilis treatment (to be given in the operating room). She is now to undergo debridement of necrotic skin and soft tissue drainage of abscess and other indicated procedures depending on operative findings. The patient and her mother understand the risk of bleeding, infection, cosmetic deformity, and other unforeseen complications related to operation and wished to proceed. Electronically Signed By: DUANE SALCEDO MD 10/30/21 1534 PATIENT NAME: LE LOVE OPERATIVE REPORT DATE OF : 83 REPORT #: [id number] PHYSICIAN: DUANE SALCEDO MD PCP: NO PRIMARY CARE PHYSICIAN REPORT IS CONFIDENTIAL AND NOT TO BE RELEASED WITHOUT AUTHORIZATION [facility] [address], [place] [address] Signed FINDINGS: Indeed there was a copious amount of foul-smelling purulence within the substance of the breast inferior to the left nipple. Necrotic skin was noted as well and this was debrided. The ultimate abscess cavity and necrotic tissue within it was debrided fully to viable tissue. The most logistically feasible way for wound management was deemed to be a wound VAC device and this was applied as well. DESCRIPTION OF PROCEDURE: The patient was brought to the operating room and given a general endotracheal anesthetic. During the course of her operation at conclusion, she was given penicillin G (benzathine penicillin G) intramuscularly by the solar energy technician. After satisfactory general endotracheal anesthesia, the breast was prepared with a Betadine based solution and draped sterilely. Photograph was taken. An incision was made in the inferior aspect of the left areola and egress of copious amounts of purulent material which was foul smelling was noted. Gram stain and cultures were obtained. The abscess cavity measured approximately 6 cm x 3 cm x 3 cm deep. The necrotic tissue was noted associated with this and this was debrided including the overlying skin. Further debridement was undertaken with a banjo curette down to viable tissue fully. Deep parenchymal probing with a hemostat showed no undrained fluid collections at that point. Irrigation was undertaken. Hemostasis assured with electrocautery. Given the high probability that some amount of ongoing wound care would be necessary, a wound VAC device was deemed most appropriate, so as to minimize dressing changes and so on. On that basis, a black wound VAC sponge was cut to the appropriate configuration and placed in the depth of the wound. The wound was measured at 6 cm x 3 cm x 3 cm deep. Application of 120 mmHg suction was undertaken on the device. After was at 14 minutes of circulating time in the operating room, she was taken to the recovery room after extubation in good condition having suffered no known complications. BLOOD LOSS: Was less than 25 mL. Sponge, needle, and instrument counts were reported as correct x3. Duane Salcedo MD Electronically Signed By: DUANE SALCEDO MD 10/30/21 1534 PATIENT NAME: LE LOVE RICHIETOMMYIVANDIXIE OPERATIVE REPORT DATE OF : 83 REPORT #: [id number] PHYSICIAN: DUANE SALCEDO MD PCP: NO PRIMARY CARE PHYSICIAN REPORT IS CONFIDENTIAL AND NOT TO BE RELEASED WITHOUT AUTHORIZATION [facility] [address] [place] [address] Signed HAYLEY/ARVINL /[id number] cc: Dr. Duane Florez [facility] Copies: ~ Electronically Signed By: DUANE SALCEDO MD 10/30/21 1534 PATIENT NAME: LE LOVE [facility] OPERATIVE REPORT DATE OF : 83 REPORT #: [id number] PHYSICIAN: DUANE SALCEDO MD PCP: NO PRIMARY CARE PHYSICIAN REPORT IS CONFIDENTIAL AND NOT TO BE RELEASED WITHOUT AUTHORIZATION
--- NOTE | 2021-10-30 16:37 | NUR ---
SPOKE WITH DAVID AT [facility] CPS EARLIER TODAY. SHE STATED THERE IS AN ACTIVE CPS CASE FOR PT AND THE BABY. SAID THE PT WAS BROUGHT TO THE HOSPITAL FROM THE LONG-TERM FOR THE MEDICAL CONDITION AND STILL HAS ACTIVE WARRANTS. SAYS THE PT HAS HAD BEHAVIORS IN THE PAST AND IF WE HAVE ANY PROBLEMS WITH HER TO CALL THEM AND THEY WILL SEND SOMEONE FROM [facility] POLICE OR CPS TO ASSIST. HER WORK NUMBER IS [phone]
--- NOTE | 2021-10-30 16:43 | NUR ---
TO PT ROOM TO CHECK ON PT. PT IS A/O. STATES SHE IS NOT HAVING PAIN ATT. CALL LIGHT WITHIN REACH.
--- NOTE | 2021-10-30 17:01 | NUR ---
PT STATED SHE HAD SOME VAGINAL BLEEDING. REPORTS SPOTTING WHEN URINATING. NO BLOOD NOTED UPON ASSESSMENT. FEMININE PAD PLACED TO MONITOR FOR BLEEDING. PT DENIES ABDOMINAL CRAMPING OR PAIN. VS WNL, TACHY AT BASELINE. INSTRUCTED TO REPORT TO NURSES AND ALLOW NURSES TO SEE BLOOD, PAIN, OR CLOTTING.
--- NOTE | 2021-10-30 23:48 | NUR ---
LATE ENTRY FOR 1930; REPORT RECIEVED, PT IS IN COVID ISOLATION, MOTHER IS WITH HE AT BEDSIDE. WOUND VAC TO LEFT BREAST INTACT WITH PRESURE 120, SCANT SEROSANGUINEOUS DRAINAGE TO CANISTER. PT IS DRIKING FLUIDS W/O N/V. WILL ADVANCE DIET TO REGULAR TOLORATED. PT STATES PAIN IS "OK".
--- NOTE | 2021-10-31 02:50 | NUR ---
PT AWAKE, IV IN AC ALARMS DUE TO OCCLUSION. PT TURNED THE IV PUMP OFF. EDUCATED PT TO CALL IF EQUIPMENT SOUNDS ALARMS. PUMP TANMPER LOCK TURNED ON. WOUND VAC PATENT WITH SCANT DRAINAGE TO CONTAINOR. STATES PAIN IS TOLORABLE AT 3/10. SANDWITCH BOX GIVEN TO PT PER HER REQUEST. FLUIDS AT BEDSIDE FOR DRINKING.
--- NOTE | 2021-10-31 09:02 | NUR ---
TO PT ROOM FOR MORNING ASSESSMENT AND MEDICATION ADMINISTRATION. PT CALLING MOM AND BECAME TEARFUL THROUGHOUT ASSESSMENT. PAIN MEDICATION GIVEN. ABX HUNG. WOUND VAC INTACT WITH MINIMAL OUTPUT. PT DENIES ANY SPOTTING OR ABDOMINAL PAIN/CRAMPING THROUGHOUT THE NIGHT OR THIS MORNING. CALL LIGHT WITHIN REACH.
--- NOTE | 2021-10-31 16:00 | NUR ---
Called and spoke with Mya and Dr. Barrios. Asked if Dr. Barrios would be willing to take this pt and she will see her next week 11/07/21 at 0800.
--- NOTE | 2021-10-31 16:34 | NUR ---
Spoke with pt. She states she is oxyied out and having difficulty following conversations. Attempted to obtain infor and pt states she is homeless, does not have phone. Mom came in with her, but mother has a restraining order against her. Aunt is listed as emergency contact but they do not speak. Mom is [place] [phone]. Attempted to discuss patients concerns of recent I&D and explained what this was and about the wound vac in place, pts and she has not seen and OB/ Adult School Counselor., pts syphilis and need for 1 more dose of medication, at 16 weeks. Pt begins to cry when we discuss her and states concern of what this baby has been exposed to. Asked if she would like me to get her a OB and she states yes. She has questions about "extracting" the baby and I asked if she is talking about and she states yes. I let her know thats not a service provided at this hospital. I will find her an OB and she can discuss this with them. Attempted to find a address when I could have wound vac supplies sentcon and she attempted to call a friend Jonathan Lizarraga. She was unable to reach. At this point, pt asks if I can return at a later time as she cannot cont. to speak with me. Let her know I will return this afternoon. "
--- NOTE | 2021-10-31 16:45 | NUR ---
Pt updated I scheduled an appt with Dr. Barrios and she states "awesome, thank you."
--- NOTE | 2021-10-31 17:05 | NUR ---
TO PT ROOM FOR PAIN REASSESSMENT. SHE STATES R AC IV IS TOO PAINFUL TO KEEP IN AND WOULD LIKE A SECOND STARTED. NO S/S OF INFECTION OR INFILTRATION. NEW IV STARTED IN LEFT HAND.
--- NOTE | 2021-10-31 17:45 | NUR ---
Call from pts mom, she states she has spent two days attempting to find placement for pt into an A&D program. She states all the family and friends want to help her, but have not been able to assist with her drug abuse. She sttes A&D and the detox center will not assist as she is positive for covid. Let her know I would see what I could do to help. She also states pt has been calling her all day insisting she bring her purse, mom is sure their are drugs inside and will not bring.
--- NOTE | 2021-10-31 17:47 | NUR ---
Spoke with pt and asked if she would agree to see CLYDE and she states she will. Called and spoke with Chica and she included Chante on the phone as she works with the program for women. UPdated she has agreed to see. Chante will visit in the am and bring Infor for her new program and also see this pt.
--- NOTE | 2021-10-31 19:15 | NUR ---
RECEIVED REPORT FROM DAVID. PT IS ISOLATION DUE TO COVID. ALL PROTECTIVE EQUIPMENT AVAILABLE OUTSIDE ROOM.
--- NOTE | 2021-10-31 19:39 | NUR ---
PT CALLED TO SAY HER DRIP WAS OUT, IN TO CHECK ON PT, IV TUBING WAS UNSCREWED FROM HUB, RN FIXED, MEDICATED, NO FURTHER NEEDS
--- NOTE | 2021-10-31 22:50 | NUR ---
SET PT UP FOR SHOWER, IV SITE PROTECTED WITH XL GLOVE AND FOAM TAPE
--- NOTE | 2021-10-31 23:00 | NUR ---
BEEN IN ROOM PT IS UP TO THE SHOWER, NEW LINENS IN PLACE, SBA FOR PT SHE HAS CONNECNTED IV AND WOUNDVAC
--- NOTE | 2021-10-31 23:10 | NUR ---
PT HAS FINISHED SHOWERING, BRUSHED HER TEETH, NEW GOWN IN PLACE, BACK TO BED, NO FURTHER NEEDS AT THIS TIME
--- NOTE | 2021-10-31 23:32 | NUR ---
PT STATES SHE FEELS MUCH BETTER AFTER HER SHOWER. SHE STATES HER NAUSEA IS RELIEVED . NICOTINE PATCH WAS REMOVED, PT THINKS IT WAS TOO STRONG AND MAY HAVE CAUSED HER NAUSEA. PT WAS GIVEN ZOFRAN 4 MG IVP AT THE SAME TIME AQS PATCH WAS REMOVED. PT IS EATING AN ORANGE SHERBET. NO OTHER NEEDS.
--- NOTE | 2021-11-01 00:15 | NUR ---
NICOOTINE PATCH REMOVED. PT THOUGHT IT MAY BE MAKING HER NAUSEOUS.
--- NOTE | 2021-11-01 06:20 | NUR ---
PT UP TO BATHROOM TO VOID. TOLERATED THIS WELL. PAIN IS WELL CONTROLLED. THINKS SHE WILL GO BACK TO SLEEP.
--- NOTE | 2021-11-01 07:48 | NUR ---
TO PT ROOM TO CHECK ON PT AND HANG IV ABX. RATES PAIN 09/06. TORADOL GIVEN. CALL LIGHT WITHIN REACH.
--- NOTE | 2021-11-01 10:10 | NUR ---
Stopped by pts room. Chante from [facility] (Drug additions in preg women) present in the room with Mask, eye wear, gown, and gloves in place. She is discussing placement with this pt and pt is in agreement. Chante will stop by my office when she finishes with Lesa.
--- NOTE | 2021-11-01 10:20 | NUR ---
TO PT ROOM TO ADMINISTER PAIN MEDICATION. PT IS A/O, IV RUNNING AND SITE WNL. CLYDE ARRIVED TO SPEAK WITH PT AND AT BEDSIDE.
--- NOTE | 2021-11-01 11:37 | PATH ---
[facility] [address], [place] [address] Signed SPECIMEN(S): A LEFT BREAST SPECIMEN SOURCE: A. LEFT BREAST CLINICAL HISTORY: Products of debridement, left breast. Left breast abscess, COVID positive, new diagnosis syphilis, meth, acid, PG18W. FINAL PATHOLOGIC DIAGNOSIS: Left breast abscess tissue, debridement: - Benign skin with ulceration and dermal abscess. AMB:emh:C2NR MICROSCOPIC EXAMINATION: Histologic sections of all submitted blocks are examined by light microscopy. These findings, together with the gross examination, support the pathologic diagnosis. GROSS DESCRIPTION: The specimen, labeled "PJ, A," and designated on the requisition "products of debridement, left breast abscess," is received in formalin and consists of an unoriented elliptical portion of skin and soft tissue (5.8 x 2.0 x 0.8 cm). The resection margin is inked blue, and the specimen is serially sectioned to reveal magana to red-brown cut surface. Packing Inspector sections are submitted in cassettes (A1-A2). AC (under the direct supervision of a pathologist) The Gross Description was prepared using a voice recognition system. The report was reviewed for accuracy; however, sound-alike word errors, addition and/or deletions may occur. If there is any question about this report, please contact Client Services. PERFORMING LABORATORY: The technical component was performed by [facility], [address] [place] [id number] (CLIA# [id number]). Professional interpretation was performed by [facility], [facility], [address] [place] [phone] (CLIA#: [id number]). Diagnostician: Sandra Monique MD Pathologist PATIENT NAME: LE LOVE PATHOLOGY DATE OF : 83 REPORT #: [id number] PHYSICIAN: [facility] PCP: NO PRIMARY CARE PHYSICIAN REPORT IS CONFIDENTIAL AND NOT TO BE RELEASED WITHOUT AUTHORIZATION [address] [address] Signed Electronically Signed 11/01/2021 Copies: ~ PATIENT NAME: LE LOVE PATHOLOGY DATE OF : 83 REPORT #: [id number] PHYSICIAN: [facility] PCP: NO PRIMARY CARE PHYSICIAN REPORT IS CONFIDENTIAL AND NOT TO BE RELEASED WITHOUT AUTHORIZATION
--- NOTE | 2021-11-01 11:40 | NUR ---
Chante to my office, states pt would like to go to [facility] in [place]. Pt has many issues and Chante is able to assist her with all of this with the [facility] program. Discussed pt has a court appearance Thursday she cannot miss, she is also scheduled to see Dr. Denis HEDRICK on Thu. She has a wound vac in place that will require dressing changes on her L breast and is + for Covid. Gave her the number for Viki from [facility] CPS. I had attempted to call her, left a message. Chante states she will text me later.
--- NOTE | 2021-11-01 13:00 | NUR ---
Received email from Chante asking if I could check with pt to see if [facility] called and started the intake process. Spoke with pt and she asks if she can have the [facility] fax papers to my office and gave her my fax number. Received papers from the [facility] and from pts acid pumper. Pt asks I fax the papers back to the [employer]. Faxed papers and returned them to the pts with the fax sheet and confirmation sheet.
--- NOTE | 2021-11-01 14:03 | NUR ---
TO PT ROOM FOR ASSESSMENT AND MEDICATION ADMINISTRATION. PT A/O. HELPED PT WITH IV POLE FOR SHOWER.
--- NOTE | 2021-11-01 14:35 | NUR ---
Spoke with Lesa, she states [facility] called and completed info with her. Discussed with pt, plan for Thursday's court hearing. She is unsure if she needs to go in person or what is happening. Asked if she cared if I called her patternmaker grader and she asks I do. Called and spoke with office staff asked if pt is expected to appear in court on Thursday as she is + for covid, has a wound vac in place, and is an IP. IP cannot just leave the hospital. It is not the same as ER pt on a mental health hold. They state they are unsure, but will call me back. Emailed Chante Mora from [employer] update.
--- NOTE | 2021-11-01 16:00 | NUR ---
PT REQUESTING PAIN MEDICATION FOR PAIN 10/06. PERCOCET ADMINISTERED. IV ABX AND FLUIDS RUNNING. CALL LIGHT WITHIN REACH.
--- NOTE | 2021-11-01 16:30 | NUR ---
PATIENT TOOK A SHOWER YESTERDAY. ALSO SHE TOOK ONE TODAY. NURSE GOT HER READY. PATIENT INDEPENDENT.
--- NOTE | 2021-11-01 16:57 | NUR ---
Received a call from Viki Farrar from CPS at the [facility]. She states they are working on a plan for pts court hearing on Thursday. The court has closed, but will speak with the prosecutor on Thursday. She is aware the pt is + for Covid and a IP. I let her know we could set up a zoom meeting if needed. She states the court also has a call in system. She again asks if pt go AMA, we call her immediately as pt was only released from nursing home due to her abcess. The release had restrictions in place.
--- NOTE | 2021-11-01 18:06 | NUR ---
PT C/O NAUSEA, ZOFRAN ADMINISTERED. IV FLUIDS AND ABX RUNNING. WOUND VAC INTACT WITH ABOUT 40ML OUTPUT TODAY. CALL LIGHT WITHIN REACH.
--- NOTE | 2021-11-01 19:23 | NUR ---
REPORT RECEIVED FROM DAVID. NO NEEDS AT THIS TIME.
--- NOTE | 2021-11-01 21:55 | NUR ---
PT IS INDEPENDENT TO THE BATHROOM. IV PUMPS AND WOUND VAC PLUGGED BACK IN. PT C/O PAIN AT LEFT BREAST. WOUND VAC SEAL INTACT. BREAST TISSUE IS REDDENED. PT IS MEDICATED WITH NORCO X1 TAB FOR PAIN 10/06.
--- NOTE | 2021-11-02 07:30 | NUR ---
THIS RN RECEIVED SHIFT REPORT FROM FRACISCO DURHAM. NICOLE RESTING QUIETLY ON HER RIGHT SIDE, EYES CLOSED, RESPIRATIONS ARE REGULAR AND EVEN, AND CALL LIGHT IS IN REACH. PATIENT HAS NO NURSE CARE NEEDS AT THIS TIME.
--- NOTE | 2021-11-02 08:52 | NUR ---
THIS RN IN TO SEE PATIENT PATIENT COMFORTABLE AT 2/10 PAIN AT THIS THIS TIME. AM ASSESSMENT COMPLETE. THIS RN 1PSBA PATIENT INTO THE RESTROOM AND BACK TO BED. AM MEDS GIVEN. WOUND VAC WORKING. CALL LIGHT IN REACH. PATIENT HAS NO OTHER NEEDS AT THIS TIME.
--- NOTE | 2021-11-02 09:34 | NUR ---
PATIENT WANTS TO KEEP HER FOOD. PATIENT WOKE UP A LITTLE BIT NOW SHE IS BACK TO SLEEP. AND HER DRINKS SHE WANTS TO KEEP ALSO.
--- NOTE | 2021-11-02 14:28 | NUR ---
THIS RN IN TO CHECK ON PATIENT'S PAIN. PATIENT RESTING QUIETLY, EYES CLOSED, ESPIRATIONS ARE REGULAR AND EVEN, AND CALL LIGHT IS IN REACH.
--- NOTE | 2021-11-02 14:45 | NUR ---
PATIENT WAS UP USING THE RESTROOM AND THEN CAME BACK TO HER BED INDEPENDENTLY. PATIENT SAYS SHE IS COMFORTABLE RIGHT NOW AND IS JUST WANTING TO TRY AND GO BACK TO SLEEP. AFTERNOON ANTIBIOTIC HUNG AND ASSESSMENT COMPLETE. PATIENT DENIES ANY OTHER CARE NEEDS AT THIS TIME. CALL LIGHT IS IN REACH.
--- NOTE | 2021-11-02 15:35 | NUR ---
TALKED WITH THIS RN AND INFORMED ME THAT PATIENT WAS IN A FAIR AMOUNT OF PAIN HE HAD JUST PULLED THE WOUND VAC OUT FROM HER BREAST. INFORMED THIS RN HE COULD GIVE AN EXTRA MAX DOSE OF HER PERCOCET ORDER EARLY DUE TO THE PAIN. SAID TO APPLY A WET/SALINE GAUZE DRESSING TO THE LEFT BREAST BID AND PRN NEEDED. THIS RN CALLED ROSE THE PHARMACIST TO DISCUSS THE CHARTING OF THE EXTRA DOSE AND PATT GUZMAN ASSISTED THIS RN IN PLACING THE SALINE GAUZE DRESSING, THEN A COUPLE DRY GAUZE 4X4'S, AND AN ABD TAPED IN PLACE WITH SILK TAPE. PATIENT SAYS HER PAIN IS 8/10 AND SHE WAS GIVEN 2 PO PERCOCET EARLY PER 'S VERBAL ORDER. PATIENT'S CALL LIGHT IS IN REACH AND DRESSING IS INTACT. PATIENT DENIES ANY OTHER CARE NEEDS AT THIS TIME.
--- NOTE | 2021-11-02 18:11 | NUR ---
THIS RN IN TO GIVE PATIENT HAIR SUPPLIES TO PUT HER HAIR UP AND HANG A NEW BAG OF IV FLUID. PATIENT SAYS SHE IS COMFORTABLE AFTER HER LAST PAIN MEDICATION, PAIN 2/10. PATIENT ALSO NEED A NEW SPOON WHICH WAS GIVEN. NEW DRESSING OMI FAR IS STAYING IN PLACE. PATIENT DENIED ANY OTHER CARE NEEDS AT THIS TIME. CALL LIGHT IS IN REACH.
--- NOTE | 2021-11-02 19:47 | NUR ---
REPORT RECEIVED FROM STEPHANY. PT IS AWAKE ANR ALERT. SITTING UP IN ON BED. CALL LIGHT IN REACH. NO NEEDS AT THIS TIME.
--- NOTE | 2021-11-02 20:31 | NUR ---
EXPLAINED TO PT THAT SHE WILL BE NPO AT [place]. SHE WAS GIVEN CEREAL AND MILK AND SOME CHOCOLATE. SHE IS GOING TO SIGN HER CONSENT FORM TONIGHT FOR PROCEDURE TOMORROW.
--- NOTE | 2021-11-03 00:21 | NUR ---
PT WAS UP TO THER BATHROOM TO VOID. SHE IS NOW NPO FOR PROCEDURE IN THE AM.SHE WAS MEDICATED FOR PAIN IN LEFT BREAST. DISCUSSED WITH PT CHANGING THE LEFT BREAST DRESSING AT 0200 WITH LISANDRO.
--- NOTE | 2021-11-03 02:25 | NUR ---
CHANGED DRESSING TO PT'S LEFT BREAST. DID A WET TO DRY DRRESSING WITH KERLIX SOAKED IN SALINE COVERED WITHAND ABD PAD AFFIXED TO SKIN WITH HYPAFIX TAPE. PT TOLERATED THIS PROCEDURE WELL.
--- NOTE | 2021-11-03 07:29 | NUR ---
pt was readied for surgery. she had a chg bath wipe , gown and all bedding changed. iv fluid and tubing ready on the pole. she has a new mask and has signed her surgery consent.
--- NOTE | 2021-11-03 07:30 | NUR ---
SHIFT REPORT GIVEN TO THIS RN BY FRACISCO DURHAM. PATIENT RESTING QUIETLY ON HER RIGHT SIDE, EYES CLOSED, RESSPIRATIONS ARE REGULAR AND EVEN, AND CALL LIGHT IS IN REACH. PATIENT HAS NO CARE NEEDS AT THIS TIME.
--- NOTE | 2021-11-03 07:50 | NUR ---
patient in the bed resting. pre-surg wipe down done early this morning. call light with in reach. no further needs at this time.
--- NOTE | 2021-11-03 08:30 | NUR ---
THIS RN IN TO SEE PATIENT. PATIENT DENIES PAIN AND NAUSEA. AM MEDS GIVEN. AM ASSESSMENT COMPLETE. PATIENT LEFT BREAST DRESSING INTACT. PATIENT UP TO THE BATHROOM AND VOIDED 700MLS AND BACK TO BE. PATIENT READY FOR SURGERY AND AWAITING OR CREW. CALL LIGHT IS IN REACH.
--- NOTE | 2021-11-03 09:14 | NUR ---
OR STAFF HAS COME AND TAKEN PATIENT TO OR.
--- NOTE | 2021-11-03 10:15 | NUR ---
PATIENT AWAKE BUT DROWSY AND BACK FROM OR. PATIENT SLID HERSELF FROM STRETCHER BACK INTO HER BED. VS STABLE. PATIENT HAVING 7/10 PAIN AND RECOVERY NURSE SAID SHE HAD NOT MEDICATED THE PATIENT FOR PAIN SHE WAS A LITTLE SLEEPY POST-OP. 2 PO PERCOCET GIVEN FOR PAIN. PATIENT ON CONTINUOUS PULSE OX AT THIS TIME YEWL=843% ON RA. CALL LIGHT IN REACH. PATIENT DRINKING ICEWATER AND EATING APPLESAUCE AT THIS TIME. PATIENT REMAINS IN COVID ISOLATION. REPORT FROM PACU NURSE IS HEART FATYA=[phone] IN OR.
--- NOTE | 2021-11-03 10:48 | NUR ---
THIS RN JUST TALKED TO AND HE INFORMED THIS RN PATIENT WOULD PROBABLY BE HER AT LEAST 1-2 CALE DAYS.
--- NOTE | 2021-11-03 12:36 | NUR ---
THIS RN IN AND DID NEXT SET OF POST-OP VS WHICH ARE STABLE. PATIENT GIVEN 1200 ANTIBIOTICS. PATIENT PAIN CONTROLLED AT 2/10. PATIENT GIVEN WAM WASH CLOTHES TO WASH HER HANDS AND FACE. PATIENT DENIED ANY OTHER CARE NEEDS AT THIS TIME. CALL LIGHT IS IN REACH.
--- NOTE | 2021-11-03 14:26 | NUR ---
PATIENT RESTING QUIETLY ON HER RIGHT SIDE, EYES CLOSED, RESPIRATIONS REGULAR AND EVEN, AND CALL LIGHT IS IN REACH. PATIENT HAS NO NURSING CARE NEEDS AT THIS TIME.
--- NOTE | 2021-11-03 16:32 | NUR ---
THIS RN IN WITH 1700 MED AND PERFORMED AFTERNOON ASESSMENT. PATIENT SAYS PAIN IS CONTROLLED AND SHE HAS BEEN RESTING WELL. PATIENT REQUESTED CA COUPLE SHERBERTS WHICH WERE GIVEN. PATIENT UP TO THE RESTROOM AND BACK TO BED INDEPENDENTLY. PATIENT DOES NOT WANT TO WHERE SCD'S AT THIS TIME. CALL LIGHT IS IN REACH AND PATIENT HAS NO OTHER CURRENT NEEDS.
--- NOTE | 2021-11-03 17:55 | NUR ---
PATIENT'S VS ARE STABLE AND HAS NOT NEEDED PAIN MEDICATION SINCE SHE GOT BACK FROM SURGERY. PATIENT HAS NO CARE NEEDS AT THIS TIME. CALL LIGHT IS IN REACH.
--- NOTE | 2021-11-03 20:04 | NUR ---
pt continues on covid respiratory isolation precautions. drowsy but coop with assessment, on room air, lungs clear bilat. L breast opticoat w slight old drainage in place covered with opsite in place, bruised on inner upper breast area area tender, edematous low area. medicated with 1 percocet per L breast pain. tones present. no c/o emesis or abd distress, up to br independent/sba. VIF infusing w/o problems, SL LA and IVC RW patent. turns and repositions self in bed. eating bagel w cream cheese and juise at this time. call ligth at hands reach
--- NOTE | 2021-11-03 20:30 | NUR ---
pt called want to take a shower, asked to wait at least 1-to-1 1/2 hr and would set her up as im still giving meds and assessing pts, staed understansdingmegan
--- NOTE | 2021-11-03 21:00 | NUR ---
pt called again, upset, over having to wait, set up for shower outside door, pt instructed to wait until im done assesssing my other ts. stated im getting tired, I want a shower". in bed, turns and closed eyes, will continue to encouraged to wait as she will have a shower as soon as i get done
--- NOTE | 2021-11-03 21:31 | NUR ---
pt called again, instructed to wait at least 1/2-45 mintues mores as im almost done assessing all my pts. no answer. towels and all set up ready outside door. pt on isolation. recent dressing done L breast and has 2 iv sites
--- NOTE | 2021-11-03 22:12 | NUR ---
fresh fruit and chips given to pt. pt states she didn't eat much dinner as it wasn't appealing.
--- NOTE | 2021-11-03 22:32 | NUR ---
Pt was already in shower. Instructed to wait for nurse to set her up since she has an IV running. Shower set up done. IVF sl, 2 sl areas covered. they were already wet. Noted that she has been scratching over L breast area. scratching marsks present over out of dressing area. no changes breast. showering at [facility]. Dr Figueredo to be notified of pt c/o itching at [facility], no c/o earlier. Pt awake, no further c/o L breast pain. independent in room
--- NOTE | 2021-11-03 23:00 | NUR ---
ANSWERED CALL LIGHT. PICKED UP USED TOWELS. DRIED THE FLOOR. UNDERWEAR PROVIDED. 7UP PROVIDED.
--- NOTE | 2021-11-04 00:51 | NUR ---
Pt resting, eyes closed, no distress, on room air, IVF infusing w/o problems. cont on Isolation precautions. call light and fluids at hands reach
--- NOTE | 2021-11-04 01:05 | NUR ---
pt used call light asking for snacks, snacks give, IVF infusing, Up to br, vodiing QS, call light at hands reach.
--- NOTE | 2021-11-04 02:56 | NUR ---
Pt awake, asking for snacks, chips, juice,pop and sandwich box given, tolerated well, no emesis. On room air, voiding large amounts of yellow urine. coop with vitals and assessment. On room air, lungs still clear, L breast dressing intact with scant old drainage. edema to lower breast present, bruising upper breast no changes, redness to L upper mid nad lower inner areas of breast red, non warmer than rest of surrounding skin. no c/o pain at this time. Watching tv. uses call light IVF infusign LW. pleasant
--- NOTE | 2021-11-04 03:57 | NUR ---
awake, watching tv, snacks given, IVF infusing no c/o pain, call light and fluids at ji reach
--- NOTE | 2021-11-04 06:26 | NUR ---
pT ON ROOM AIR, CONTINUES ON RESPIRATORY ISOLATION, LUNGS CLEAR BILAT, NO DISTRESS, NO SOB, WALKING INROOM, VOIDING LARGE AMOUNTS OF YELLOW URINE. IVF INFUSING W/O PROBLEMS, NO C/O ADVERSE REACTION TO VANCOMYCIN. SL PLUS CONT IV SITE PATENT. PT l BREAST INCISION COVERD W OPTICOAT, EDEMATOUS UNDER DRESSING AND REDNESS AROUND BREAST PT. PT WAS SCRATCHING INCISION AREA EARLIER. SHOWERED. TOLERATED WELL. WAS MEDICATED X1 PER L BREAST DISCOMOFRT, EFFECTIVE. HAS BEEN REQUESTING AND GETTING SNACKS VERY FREQUENTLY THIS SHIFT. HAS TOLERATED LIQUIDS AND SNACKS WELL. NO EMESIS. PLEASANT AND COOPERATIVE. HEART TONES PRESENT. USES CALL LIGHT,
--- NOTE | 2021-11-04 07:14 | NUR ---
THIS RN RECEIVED SHIFT REPORT FROM FRACISCO SIN. PATIENT RESTING QUIETLY ON HER LEFT SIDE, EYES CLOSED, RESPIRATIONS ARE REGULAR AND EVEN, AND CALL LIGHT IS IN REACH. PATIENT HAS NO CARE NEEDS A THIS TIME.
--- NOTE | 2021-11-04 08:00 | NUR ---
THIS RN IN TO SEE PATIENT PATIENT COMFORTABLE AND HAD NO REQUEST FOR PAIN MEDICATION AT THIS TIME. AM MEDS GIVEN AND AM ASSESSMENT COMPLETE. L BREST DRESSING HAS SCANT OLD RED SHADOWING UNDER DRESSING. PATIENT DENIED ANY OTHER NEEDS AT THIS TIME. CALL LIGHT IS REACH.
--- NOTE | 2021-11-04 08:18 | NUR ---
THIS RN RETURNED A PHONE CALL TO DAVID CPS WORKER FOR THE [employer]. DAVID DID NOT ANSWER. LEFT A MEES[facility] CALL THIS RN BACK.
--- NOTE | 2021-11-04 09:54 | NUR ---
PATIENT HAS FINISHED ALL HER BREAKFAST AND IS BACK IN BED ASLEEP ON HER RIGHT SIDE, EYES CLOSED, RESPIRATIONS ARE REGULAR AND EVEN, AND CALL LIGHT IS IN REACH. PATIENT HAS NO NURSING CARE NEEDS AT THIS TIME.
--- NOTE | 2021-11-04 12:00 | NUR ---
Called and left a message for RAJIV Mclaughlin, asking if pt is cleared to go to rehab. She states they will be speaking with the corporate associate attorney today about the plan for her court date (todays was cancelled), admit to an drug rehab, and transport. She will call me back when the court makes a determination. Called [facility] transport. Pt scheduled for transport for Wed at 10:00. Nohemi asks if pt requires a secure transport as they are showing her as a [place] of the state. Let her know I am not sure and will have to call her back after I get a return call from the state.
--- NOTE | 2021-11-04 12:30 | NUR ---
THIS RN IN WITH 1200 MEDS. PATIENT DENIED THE NEED FOR PAIN MEDICATION AND SAID,"I'M JUST A LITTLE SORE, THAT'S ALL". LUNCH TRAY SET UP FOR PATIENT TO EAT. PATIENT DENIED ANY OTHER CARE NEEDS AT THIS TIME. CALL LIGHT IS IN REACH.
--- NOTE | 2021-11-04 13:57 | NUR ---
PATIENT CALLED AND IS HAVING SOME ITCHING OF HER LEFT BREAST. THIS RN CALLED AND AN ORDER FOR 25MG PO BENADRYL Q6 HOURS PRN ITCHING WAS GIVEN AND ORDERED. AWAITING PYXIS TO CLEAR MED TO BE GIVEN.
--- NOTE | 2021-11-04 14:05 | NUR ---
THIS RN IN TO GIVE PATIENT BENADRYL FOR LT BREAST ITCHING. PATT HERNANDEZ IS IN THE ROOM DOING VS AT THIS TIME WELL. PATIENT HAD NO OTHER CARE NEEDS FROM THIS RN AT THIS TIME. CALL LIGHT IS IN REACH.
--- NOTE | 2021-11-04 16:26 | NUR ---
THIS RN IN TO CHECK ON PATIENT TO SEE HOW HER ITCHING IS DOING. PATIENT IS RESTING QUIETLY ON HER RIGHT SIDE, EYES CLOSED, RESPIRATIONS ARE REGULAR AND EVEN, AND CALL LIGHT IS IN REACH. PATIENT HAS NO NOTED NURSE CARE NEEDS AT THIS TIME.
--- NOTE | 2021-11-04 17:45 | NUR ---
THIS RN IN TO SEE PATIENT. PATIENT HARRISON EATEN 100% OF HER DINNER. THIS RN DID VS AND THEY ARE STABLE AND I+O'S ARE RECORDED. PATIENT STILL IS NOT WANTING PAIN MEDICATION AND SAYS SHE IS,"JUST SORE". PATIENT ALSO SAID THE BENADRYL HAD RELIEVED THE ITCHING FOR THE TIME BEING. CALL LIGHT IS IN REACH AND PATIENT HAS NO OTHER CARE NEEDS AT THIS TIME.
--- NOTE | 2021-11-04 18:10 | NUR ---
PATIENT HAS CALLED AND SAID SHE DECIDED SHE DID NEED SOME PAIN MEDICATION. 1 PO PERCOCET WAS GIVEN. HERE AND THIS RN WENT WITH AND HE EXAMINED THE PATIENT AND SAYS THE SURGICAL SITE LOOKS GOOD AND IS HEALING. TIS RN THEN SET PATIENT UP TO TAKE A SHOWER AND PATIENT IS NOW SHOWERING INDEPENDENTLY.
--- NOTE | 2021-11-04 20:09 | NUR ---
PROVIDED PATIENT WITH FRESH ICEWATER AND SNACKS. SCHEDULED MEDICATIONS ADMINISTERED PER MAY. KAILA PATH INTACT TO RIGH UPPER ARM, PATIENT REQUESTS TO LEAVE ON TILL MORNING. VANCO IV INFUSING. FULL BODY ASSESMENT DONE. DRESSING TO LEFT BREAST HAS ACTICOAT IN PLACE, NO NEW DRAIANGE. PATIENT COMPLAINTS OF ITCHING, DISCUSSED NEXT TIME OKAY TO ADMINISTER ANOTHER DOSE OF BENEDRYL PATIENT VERBALIZED UNDERSTANDING. REPORTS NO PAIN 0/10 PM PAIN SCALE. NO OTHER NEEDS AT THIS TIME. CALL LIGHT WITHIN REACH.
--- NOTE | 2021-11-04 23:01 | NUR ---
PATIENT USED CALL LIGHT WITH COMPLAINTS OF PAIN. ADMINISTERED PAIN MEDICATION PER MAR. REPORTS PAIN 5/10 ON PAIN SCALE. STATES "IT WOKE ME UP OUT OF MY SLEEP" PATIENT APPEARS CALM. PROVIDED SANDWHICH BOX PER REQUEST.
--- NOTE | 2021-11-05 06:00 | NUR ---
PATIENT RESTED WELL THROUGHOUT THE NIGHT, ADMINISTERED PAIN MEDICATION PER MAR ONCE, AND PRN BENEDRYL FOR ITCHING. PATIENT WAS APPROPRIATE AND APPEARED CALM. PROVIDED LUNCH BOX, AND OTHER SNACKS. PATIENT VOIDED WELL, INDEPENDANT IN ROOM DRESSING TO LEFT BOOB INTACT, ACTICOAT WITH OLD SHADOWING OF DRAINAGE.
--- NOTE | 2021-11-05 07:30 | NUR ---
SHIFT REPORT GIVEN TO THIS RN BY FRACISCO ARZATE. PATIENT RESTING QUIETLY ON HER LEFT SIDE, EYES CLOSED, RESPIRATIONS ARE REGULAR AND EVEN, AND CALL LIGHT IS IN REACH. PATIENT HAS NO NURSE CARE NEEDS AT THIS TIME.
--- NOTE | 2021-11-05 08:30 | NUR ---
THIS RN IN TO SEE PATIENT. PATIENT DENIES THE NEED FOR ANY PAIN MEDICATION AT THIS TIME, JUST SOME C/O OF SORENESS. AM MEDS GIVEN. AM ASSESSMENT COMPLETE. SUGICAL DRESSING 48HOURS UP AND REMOVED. 2 SMALL OPEN AREAS EITHER SIDE OF THE CLOSER WITH A LITTLE SCANT SEROSANGUINOUS DRAINAGE. PATIENT DENIES ANY OTHER CARE NEEDS AT THIS TIME. CALL LIGHT IN REACH. THIS RN LEAVING SO PATIENT CAN EAT BREAKFAST.
--- NOTE | 2021-11-05 09:18 | NUR ---
Called and left a message requesting proper paper work from Viki Blood from [facility] stating why pt cannot discharge from the hospital and also why Lesa would require secure transport. Viki's phone number [phone]. Update sent to Chante from [facility] to the above.
--- NOTE | 2021-11-05 12:41 | NUR ---
THIS RN IN TO SEE PATIENT WITH MEDS. PATIENT C/O 4-5/10 LT BREAST PAIN. 1 PERCOCET GIVEN. PATIENT SET UP TO EAT LUNCH. PATIENT WANTING SOMETHING TO COVER HER SURGICAL SITE, AND AN ALLEVYN APPLIED AT PATIENT'S REQUEST. PATIENT HAD NO OTHER CARE NEEDS AT THIS TIME. CALL LIGHT IS IN REACH.
--- NOTE | 2021-11-05 13:00 | NUR ---
Chante from [facility] here. She is wanting to know if I have heard from CPS. I let her know I plan on discharging pt to IP rehab tomorrow unless CPS provides paperwork showing pt cannot leave. She states that is their plan also. She spoke with [facility] and they plan on admitting pt tomorrow.
--- NOTE | 2021-11-05 14:30 | NUR ---
Received a phone message from Viki LACEY, returning my call. Called her back and she states she spoke with the prosecutor and they do not have any paperwork at this time to hold this pt or require secure transport. If pt leaves the Rehab, they will put a warrant out for her arrest.
--- NOTE | 2021-11-05 14:49 | NUR ---
THIS RN IN TO CHECK ON PATIENT'S PAIN RELIEF. PATIENT RESTING QUIETLY, EYES CLOSED, RESPIRATIONS ARE REGULAR AND EVEN, AND CALL LIGHT IS IN REACH. PATIENT HAS NO CURRENT NURSING CARE NEEDS. WAS JUST HERE AND THIS RN INFORMED HIM THAT THERE WAS A SMALL GAP AT BOTH ENDS OF HIS INCISION PRINCIPAL JAVA DEVELOPER THE LT BREAST. WILL COME BACK LATER OF OR TIMES TO EVALUATE THE INCISION.
--- NOTE | 2021-11-05 15:27 | NUR ---
PATIENT CALLED FOR A BOWEL OF CHOCOLATE CEREAL AND WANTS TO TAKE A SHOWER. KITCHEN WAS CALLED AND THEY WILL BRING THE CEREAL. THIS RN IN TO SEE PATIENT. IV FOR SHOWER. AFTERNOON ASSESSMENT COMPLETE. PATIENT ACCIDENTLLY DESTROYED HER ROOM PHONE AND THIS RN REPLACED IT AND SET PATIENT UP FOR A SHOWER. PATT JONES COMING IN TO WRAP PATIENT'S IV'S FOR SHOWER. CALL LIGHT IS IN REACH.
--- NOTE | 2021-11-05 17:24 | NUR ---
THIS RN INTO SEE PATIENT TAKING IN A SODA SHE REQUESTED AND GIVING 1700 MED. IV HOOKED BACK UP AFTER SHOWER AND INFUSING FINE. PATIENT HAS EATEN 90% 0F HER DINNER. PATIENT HAS NO OTHER CARE NEEDS AT THIS TIME. CALL LIGHT IS IN REACH.
[2021-11-05] MEDS ORDERED: DIPHENHYDRAMINE25 M1 PO (19:01)
[2021-11-05] MEDS ORDERED: AMOX TR-K CLV1 EACH PO (19:02)
[2021-11-05] MEDS ORDERED: ACETAMINOPHEN500 MG PO (19:02)
[2021-11-05] MEDS ORDERED: NICOTINE1 EAC2 TD (19:02)
--- NOTE | 2021-11-05 20:03 | NUR ---
ON ROOM AIR, COOP WITH ASSESSMENT. DRESSING TO MID L BREAST AREA INTACT, RED SKIN AROUND. 2 SL PATENT. MEDICATED WITH TYLENOL C/O 7/10 L BREAST AREA PAIN. AMBULATORY IN ROOM, SNACKS FRESH WATER AND JUICE/POP GIVEN ON REQUESTS
--- NOTE | 2021-11-05 20:29 | NUR ---
pt out of shower, dressing l breast changed. 2 gaping areas both end of breast area. while doing dressing pt pulled on breast skin and another small gaping area mid area below aureola came ope, 1cm, red inner area, moist. no drainage. .dressing changed with 3 pieces 2x2x gauze and covered with silk tape, area under breast red edematous, comofortable, pt instructed not to undone dressing stated understanding. In bed, watching tv, IVF infusing w/o rpoblems. voided, cooperative, eating snacks
--- NOTE | 2021-11-05 23:47 | NUR ---
CONT ON RESP ISOLATION PRECAUTIONS, RESTING, EYES CLOSED, IVF INFUSING, TURNS AND REPOSITIONS SELF IN BED
--- NOTE | 2021-11-06 00:43 | NUR ---
cont on resp isolation precautions. dressing to L breast intact. IVF infusing w/o problems. turns and repositinos self in bed
--- NOTE | 2021-11-06 02:37 | NUR ---
pt continues on respiratory airborne isolation precautions. turns and reposition sself in bed, IVF infusing, eyes closed, no distress
--- NOTE | 2021-11-06 03:27 | NUR ---
Used call light, wanted more snacks, awake, snacks given, up to br, voided, back to bed, tolerating well, L breast dressing CDI, ivf infusing w/o problems, fluids at hands reach
--- NOTE | 2021-11-06 05:26 | NUR ---
PT HAS SLEPT OFF AND ON, HAS NOT CALLED OFTEN OR REQUIRED SNACKS OFTEN. CONT ON AIRBORNE RESP ISOLATION PRECAUTIONS. LUNGS CLEAR, NO DISTRESS. NO SOB WITH EXERTION. SHOWERED THIS SHIFT. DRESSING TO L BREAST CHANGED. DEHISCED AREA BOTH EDGES AND BELOW BREAST AUREOLA PRESENT. NO DISCHARGE NOTED. EDEMA AND REDNESS STILL PRESENT, MUCH IMPROVED FROM YESTERDAY. SL AND IVF SITE PATENT, TOLERATING IVF W/O PROBLEMS, VOIDING QS. COOPERATIVE. HEART TONES STRONG AT 148BPM , PT SBA/INDEPENDENT IN ROOM. COOP WITH ASSESSMENTS. [facility]. PT AWARE. WAS MEDICATED X1 WITH TYLENOL PER C/O L BREAST PAIN, EFFECTIVE
--- NOTE | 2021-11-06 07:30 | NUR ---
SHIFT REPORT RECEIVED BY THIS RN FROM FRACISCO SIN. PATIENT UP AWAKE IN THE ROOM AND HAS NO NURSE CARE NEEDS AT THIS TIME. CALL LIGHT IS IN REACH AND PATIENT TO DC AT 10AM TODAY.
--- NOTE | 2021-11-06 08:36 | NUR ---
Orders for dc completed in the chart from last night. Called and cancelled appt with Dr. Barrios tomorrow as pt is leaving for IP drug rehab today. Called and spoke with [facility] and asked what paper work they need. They would like progress notes, H&P, and DC summary. Also any orders. I will print and place in an envelope to go with transport. Their intake person does not arrive until 0900. They will call if they need further information. Called [facility] and asked if they had filled pt meds. They did not receive the scripts. Called [facility] and spoke with Luis Felipe, he states he will not be able to fill them by 1000. Took Dc papers to our pharmacy and they will fill 1 months worth. Texted Chante from [facility] and updated. Called Dr. Ford office and notified pt will be in rehab for at least 3 months and checked if ok to have a provider there check her surgical wound in 1 month. They confirmed. Verbal order written on dc orders. Called [facility] as requested and let them know our pharmacy will fill these meds. Luis Felipe states he will cancel prescriptions. [phone] All paper work placed in an envelope and given to for the transport to [facility] in [place], [place].
--- NOTE | 2021-11-06 10:00 | NUR ---
PATIENT HAS HAD BREAKFAST AND AM SHOWER. BOTH IV'S DC'D INTACT.NEW GAUZE AND MEDIPORE TAPE DRESSING IN PLACE ON LEFT BREAST AND THIS RN TAUGHT PATIENT HOW TO TAKE IT OFF AND REPLACE IT, ESPECIALLY PEELING THE DRESSING OFF FROM THE BOTTOME UPWARD INSTEAD OF PULLING OF THE DRESSING DOWNWORD AGAINST THE INCISION SITE WHEN TAKING IT OFF. PATIENT TAUGHT TO BATH WITH HIBACLENS SOAP AND EXTRA SOAP AND DRESSINGS SENT WITH PATIENT WELL A TUBE OF BELONGINGS TTHAT [facility] JUST DROPPED OFF, RX'S FROM THE PHARMACY, AND A COUPLE OF SACK LUNCHES FOR TRAVEL TO HER REHAB FACILITY. PATIENT VERBALIZED UNDERSTANDING TO ALL INSTRUCTIONS. PATIENT TAKEN TO THE FRONT OF THE FACILITY IN WC WITH ALL BELONGINGS TO LEAVE VIA [facility]SP[facility].
--- NOTE | 2021-11-07 13:04 | DS ---
[facility] [address], [place] [address] Signed ADMISSION DATE: 10/30/2021 DISCHARGE DATE: ANTICIPATED DATE OF DISCHARGE: November 06, 2021. REASON FOR ADMISSION: This 36-year-old Armenian woman presents with a large abscess beneath the left areola as well as generalized left breast cellulitis and apparently necrotic tissue in the inferior aspect of the areolar margin. She was concurrently found to recently have active case of syphilis, intrauterine gestation of 18 weeks currently, and additionally found to be COVID positive. PERTINENT PHYSICAL EXAMINATION: Showed a relatively thin Armenian woman, who is cooperative and not systemically toxic. Pertinent physical exam showed the left breast to have intense erythema, necrotic skin below the left areolar margin, and exquisite tenderness. HOSPITAL COURSE: She was identified as having COVID disease upon pre-admission testing and was kept in isolation. She underwent general endotracheal anesthesia and incision and drainage of a significant abscess of the left breast as well as excision of necrotic skin in the area as noted. A wound VAC device was placed. She was maintained on meropenem initially and with persistent cellulitic changes, additionally added vancomycin. She had marked improvement thereafter. The Gram stain showed gram-negative rods, gram-positive cocci, and gram-positive rods. Culture actually showed only Actinomyces for which sensitivities were not obtained per hospital lab protocol. She was transitioned to oral Cipro and Flagyl and maintained on vancomycin IV. The cultures never did grow anything other than the Actinomyces identified initially. On wound VAC dressing change #1 on postoperative day 4, she was found to have impressive granulation of the tissue. On that basis, she returned to the operating room on November 03, 2021, where she underwent exam under anesthesia and closure of the wound (secondary closure technique) with interrupted subdermal Vicryl. An Acticoat dressing was applied. She was transitioned off her vancomycin and Cipro and Flagyl and changed to Augmentin Electronically Signed By: DUANE SALCEDO MD 11/07/21 1304 PATIENT NAME: LE LOVE DISCHARGE SUMMARY DATE OF : 83 REPORT #: [id number] PHYSICIAN: DUANE SALCEDO MD PCP: NO PRIMARY CARE PHYSICIAN REPORT IS CONFIDENTIAL AND NOT TO BE RELEASED WITHOUT AUTHORIZATION [facility] [address], [place] [address] Signed 500 mg p.o. t.i.d. anticipating 5 additional days of that treatment. She does have some separation of the wound laterally, but good granulation beneath it and the central portion healing well. I expect this area to heal up completely in due course almost certainly within 2 weeks or less. She is anticipated to be discharged to a rehab center. Wound care instructions will include gauze dressing application daily, showering daily, and preferably with Hibiclens soap if possible. I will be happy to see her back in the office in about 4 weeks at which point the wound should be healed. She is advised and it will be made known that she was recommended initially to have an additional dose of penicillin G intramuscularly administered (benzathine penicillin) in addition to her initial dose in the emergency room. Given the ongoing vancomycin and other antibiotics that she had taken during the course of her hospitalization, it is somewhat dubious that additional antibiotic therapy will truly be necessary, but that is a protocol and it will be followed. DISCHARGE DIAGNOSES: 1. Necrotizing soft tissue infection with abscess of left breast, polymicrobial on Gram stain, culture positive for Actinomyces. 2. Methamphetamine abuse. 3. Syphilis. 4. Intrauterine gestation 18 weeks. 5. Incidental finding of COVID positive. MD HAYLEY Norman/MODL /[id number] cc: [facility] Adriane Electronically Signed By: DUANE SALCEDO MD 11/07/21 1304 PATIENT NAME: LE LOVE DISCHARGE SUMMARY DATE OF : 83 REPORT #: [id number] PHYSICIAN: DUAEN SALCEDO MD PCP: NO PRIMARY CARE PHYSICIAN REPORT IS CONFIDENTIAL AND NOT TO BE RELEASED WITHOUT AUTHORIZATION [facility] [address] [facility] [place] [address] Signed Copies: [facility] Electronically Signed By: DUANE SALCEDO MD 11/07/21 1304 PATIENT NAME: LE LOVE MARSHADIXIE DISCHARGE SUMMARY DATE OF : 83 REPORT #: [id number] PHYSICIAN: DUANE SALCEDO MD PCP: NO PRIMARY CARE PHYSICIAN REPORT IS CONFIDENTIAL AND NOT TO BE RELEASED WITHOUT AUTHORIZATION
--- NOTE | 2021-11-08 14:04 | OR ---
[facility] [address], [place] [address] Signed DATE OF OPERATION: 11/03/2021 SURGEON: Duane Salcedo MD PREOPERATIVE DIAGNOSIS: Recent excision and drainage of left periareolar necrotizing soft tissue infection including abscess (October 30, 2021). POSTOPERATIVE DIAGNOSIS: Recent excision and drainage of left periareolar necrotizing soft tissue infection including abscess (October 30, 2021). PROCEDURES: 1. Exam under anesthesia. 2. Secondary wound closure, left breast wound. ANESTHESIA: Intravenous sedation with local (Marcaine 7 mL). INDICATION: This 36-year-old woman was evaluated on October 30, 2021 in the emergency room and found to have a cellulitic left breast with a subareolar abscess and necrotizing infection of skin and soft tissue in the inferior areolar area. She underwent general anesthetic and excision of necrotic skin tissue and drainage of a significant abscess. Gram stain showed polymicrobial infection. She has been treated initially with meropenem. Additionally, added vancomycin and recently changed to Cipro and Flagyl orally and ongoing use of vancomycin. A wound VAC device was placed at the initial operation. Her initial wound VAC dressing changed yesterday, showed impressive granulation of the wound. Approval for additional wound VAC use by her insurance provider has been denied for outpatient use and it is highly convenient that the wound is now granulating well enough that secondary closure can be undertaken with high likelihood of success. The risks of bleeding, infection, cosmetic deformity, recurrent infection and so forth were reviewed with the patient. She understands and wished to proceed with wound closure at this time. FINDINGS: Excellent granulation was noted in the subareolar area as well as surrounding breast parenchyma. There was inversion of the nipple which may or may not be a permanent Electronically Signed By: DUANE SALCEDO MD 11/08/21 1404 PATIENT NAME: LE LOVE OPERATIVE REPORT DATE OF : 83 REPORT #: [id number] PHYSICIAN: DUANE SALCEDO MD PCP: NO PRIMARY CARE PHYSICIAN REPORT IS CONFIDENTIAL AND NOT TO BE RELEASED WITHOUT AUTHORIZATION [facility] [address], [place] [address] Signed feature of her healing process. The wound was closed with good cosmetic effect overall. PROCEDURE IN DETAIL: The patient was brought to the operating room with full COVID protections as she tested positive for COVID in outset of her evaluation. She was given intravenous sedation with propofol infusional technique by the nail making machine setter and the saline gauze dressing was removed. The breast was then prepared with a Betadine based solution and draped sterilely. 7 mL of 0.25% Marcaine was injected in the subdermal area of the nipple as well as the lower aspect of the breast incision. The wound itself was approximately 6 cm in maximum length and 4 cm in width. Excellent granulation tissue was noted in the breast parenchyma and in the subareolar area. Inversion of the nipple was noted. Additional small amount of Betadine was placed into the depths of the inverted nipple. Fibrosis and so fourth, no doubt accounted for nipple inversion. The nipple could not be more everted and with resolution of edema, it may improve in its appearance over time. The deep dermal area was reapproximated with interrupted 2-0 Vicryl, only three sutures were placed to approximate the tissue. An Acticoat dressing was applied. She was allowed to emerge from sedation, taken to recovery room in good condition having suffered no complication. Sponge, needle, and instrument counts were reported as correct x3. There were no complications. MD HAYLEY Norman/ARVINL /[id number] cc: [facility] Copies: [facility] ~ Electronically Signed By: DUANE SALCEDO MD 11/08/21 1404 PATIENT NAME: LE LOVE [facility] OPERATIVE REPORT DATE OF : 83 REPORT #: [id number] PHYSICIAN: DUANE SALCEDO MD PCP: NO PRIMARY CARE PHYSICIAN REPORT IS CONFIDENTIAL AND NOT TO BE RELEASED WITHOUT AUTHORIZATION
== END 2021-11-06 10:00 | disposition home or self-care (01) | DRG 817 ==
LOC: ED 09:06 → MS 11:12
PROVIDERS: ADMIT Surgery; ATTEND Surgery
PROC: 0H9U0ZZ Drainage of Left Breast, Open Approach (ICD-10-PCS; 2021-10-30)
PROC: 0JB60ZZ Excision of Chest Subcutaneous Tissue and Fascia, Open Approach (ICD-10-PCS; 2021-10-30)
PROC: 8E0ZXY6 Isolation (ICD-10-PCS; principal; 2021-10-30 13:00)
PROC: 0JQ60ZZ Repair Chest Subcutaneous Tissue and Fascia, Open Approach (ICD-10-PCS; 2021-11-03)
DX: O91.112 Abscess of breast associated with pregnancy, second trimester (principal); U07.1 COVID-19; O98.512 Other viral diseases complicating pregnancy, second trimester; O98.112 Syphilis complicating pregnancy, second trimester; O99.322 Drug use complicating pregnancy, second trimester; I96 Gangrene, not elsewhere classified; O99.412 Diseases of the circulatory system complicating pregnancy, second trimester; O10.912 Unspecified pre-existing hypertension complicating pregnancy, second trimester; O99.332 Smoking (tobacco) complicating pregnancy, second trimester; F15.10 Other stimulant abuse, uncomplicated; Z3A.18 18 weeks gestation of pregnancy; B96.89 Other specified bacterial agents as the cause of diseases classified elsewhere; F17.210 Nicotine dependence, cigarettes, uncomplicated; Z98.890 Other specified postprocedural states; Z88.2 Allergy status to sulfonamides; Z88.1 Allergy status to other antibiotic agents; Z79.899 Other long term (current) drug therapy
CPT/HCPCS: 00300; 00400; 36415; 80053; 80202; 85025; 87070; 87075; 87205; 87502; 88305; A9270; J0171; J0561; J1170; J1885; J2001; J2185; J2405; J2704; J3010; J3370; J7060; J7121; U0003

== ENCOUNTER 2022-01-21 08:39 | Observation (INO) | payer OTHER ==
[~2022-01-21] VITALS: Ht 157.5 cm; Wt 70.6 kg
--- NOTE | ~2022-01-21 | CONS ---
[facility] [address], [place] [address] Draft DATE OF CONSULTATION: 01/21/2022 CHIEF COMPLAINT: Breast abscess in 3rd trimester. HISTORY OF PRESENT ILLNESS: Ms. Love is a 36-year-old G16, P4 female at 31 weeks gestation with ALIRIO of 04/02/2022, who presented to the emergency department today complaining of recurrent breast symptoms. complicated by polysubstance abuse with resulting interaction with the criminal justice system, syphilis affecting , prior x2, history of abruption, tobacco use in , anti s antibody, history of HSV, history of breast abscess following extensive surgical debridement and wound management in early , and tuberculosis in . The patient is under the care of the [facility] for her and is part of the [facility]. She presented to the emergency department today with breast complaint for the past 2 days. 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 She was evaluated by Dr. Jonathan Figueredo with General Surgery who recommended surgical debridement of breast abscess again noted on ultrasound today. PAST MEDICAL HISTORY: See problem list. PAST SURGICAL HISTORY: 1. x2. 2. Breast incision and drainage with extensive wound management. MEDICATIONS: vitamin. ALLERGIES: 1. Cephalosporins. 2. Sulfa. 3. Cephalexin. SOCIAL HISTORY: The patient is current everyday smoker, approximately 1/2 pack. She admits to methamphetamine use last yesterday. She has a history of IV methamphetamine use, but she primarily smokes her meth. She also has used opioids and occasionally marijuana in the past. REVIEW OF SYSTEMS: A complete review of systems was performed and negative except per HPI. PATIENT NAME: LE LOVE CONSULTATION DATE OF : 83 REPORT #: [id number] PHYSICIAN: KILLIAN RODRIGUEZ DO PCP: NO PRIMARY CARE PHYSICIAN REPORT IS CONFIDENTIAL AND NOT TO BE RELEASED WITHOUT AUTHORIZATION [facility] [address], [place] [address] Draft PHYSICAL EXAMINATION: VITAL SIGNS: Temperature 97.8, pulse 98, respiratory rate 17, blood pressure 123/84. HEENT: Normocephalic, atraumatic. NECK: Supple. Trachea midline. No masses. HEART: Regular rate and rhythm. LUNGS: Clear to auscultation bilaterally. ABDOMEN: Gravid uterus with heart rate in the 130s by Doppler. No abdominal tenderness. Scar consistent with surgical history. EXTREMITIES: No edema or tenderness noted. BREASTS: Breast exam was performed with climatology teacher in the room. The right breast is normal with no masses, lumps, bumps, or nipple discharge. The left breast shows some induration at approximately 3 to 5 o'clock in the inferior areolar region with drainage through the skin of purulent with significant erythema surrounding. She also has significant scarring of her left breast with resulting inversion of her left nipple. No other lymphadenopathy, masses, or noted nipple discharge. LABORATORY DATA: WBC 7.7, hemoglobin 10.9, platelets 356. Chemistry: Sodium 137, potassium 3.7, BUN 6, creatinine 0.54, glucose 113, AST 16, ALT 20. She is COVID, influenza, and RSV negative. IMAGING: A breast ultrasound was performed that demonstrates a hypoechoic collection at 4 o'clock position in subareolar region approximately 4.9 x 0.9 x 3.2 cm with increased vascularity along the margins, consistent with phlegmon and developing abscess. ASSESSMENT: Intrauterine at [address] gestation[address] Figueredo's recommendation for surgery in . We reviewed surgery in the 3rd trimester and the importance of completing the surgery to allow for full healing. We did review relative safety of anesthetics and Anesthesia will choose modality if they feel best provide safety in while allowing surgery that can be completed. Recommended Toradol or other NSAIDs due to gestational age. Reviewed antibiotics in and importance of followup. She will follow up at [facility] for continued care. She has an appointment scheduled on 01/23/2022 and reports that she does not have transportation for this appointment. We reviewed the above complications including syphilis with concern for possible neurosyphilis and she was scheduled to undergo LP and consultation with Infectious Disease. They are also developing a plan regarding her tuberculosis in and the remainder of her complications. It is imperative that she follow up with them as scheduled. She may benefit from social work consult for coordination with transportation through the [place]. I appreciate the consultation and expert care by Dr. Jonathan Figueredo. PATIENT NAME: LE LOVE CONSULTATION DATE OF : 83 REPORT #: [id number] PHYSICIAN: KILLINA RODRIGUEZ DO PCP: NO PRIMARY CARE PHYSICIAN REPORT IS CONFIDENTIAL AND NOT TO BE RELEASED WITHOUT AUTHORIZATION [facility] [address], [place] [address] Draft Killian Rodriguez DO JSAMANTHA/HARSHAD /[id number] Copies: ~ PATIENT NAME: IVANLECONSUELO MCCAIN CONSULTATION DATE OF : 83 REPORT #: [id number] PHYSICIAN: KILLIAN RODRIGUEZ DO PCP: NO PRIMARY CARE PHYSICIAN REPORT IS CONFIDENTIAL AND NOT TO BE RELEASED WITHOUT AUTHORIZATION
[~2022-01-21 08:39] MED LIST changes: +ACETAMINOPHEN500 MG PO; +AMOX TR-K CLV1 EACH PO; +DIPHENHYDRAMINE25 M1 PO; +NICOTINE1 EAC2 TD
--- OUTSIDE RECORDS SUMMARY | 2022-01-21 08:46 | XMS ---
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 - Patient with suicidal and/or homicidal ideations eloped. - Patient eloped with IV in place. Details: PATIENT LWBS Elopement at [facility] 10/10/2020 18:29 - Other Details: PATIENT LWBS. CRITERIA MET - 6 ED Visits in 6 Months - [facility] - 3 Facilities in 90 Days CARE PROVIDERS There are no care providers on record at this time. Angel has no Care Guidelines for this patient. Care History Medical/Surgical 11/01/2019 [facility] - \T\middot;\T\nbsp; PATIENT WOULD BENEFIT FROM [facility]-PLEASE DISCUSS \T\middot;\T\nbsp; PLEASE CONTACT [facility]- IF PATIENT ACCEPTS SERVICES- [phone] \T\middot;\T\nbsp; [facility] CAN PROVIDE PATIENT WITH SURTASS ANALYST AND HELP WITH COMMUNITY RESOURCES E.D. VISIT COUNT (12 MO.) 1 Avinash Stephens 1 Avinash Claudio 4 [facility] TOTAL 6 NOTE: Visits indicate total known visits. ED/UCC VISIT TRACKING (12 MO.) 01/21/2022 08:40 [facility] TYPE: Emergency COMPLAINT: - LUMP ON BREAST 12/08/2021 18:25 [facility] TYPE: Emergency DIAGNOSES: - EMS Cyst - Unspecified lump in the left breast, overlapping quadrants 11/25/2021 21:28 [facility] TYPE: Emergency DIAGNOSES: - Abdominal Pain, 24 Wks - Unspecified abdominal pain 10/30/2021 09:08 [facility] TYPE: Emergency COMPLAINT: - BLISTERED NIPPLE 10/28/2021 13:09 [facility] TYPE: Emergency COMPLAINT: - BLISTER UNDER NIPPLE 10/19/2021 18:33 [facility] TYPE: Emergency COMPLAINT: - CHEST PRESSURE, DIAGNOSES: - Unspecified pre-existing hypertension complicating , second trimester - Other specified diseases and conditions complicating - Allergy status to sulfonamides - Epigastric pain - 16 weeks gestation of - Allergy status to other antibiotic agents - Nicotine dependence, unspecified, uncomplicated - Maternal care for unspecified type scar from previous delivery - Smoking (tobacco) complicating , second trimester INPATIENT VISIT TRACKING (12 MO.) 10/30/2021 11:[address] [facility] TYPE: Medical Surgical COMPLAINT: - L BRST ABS,COVID+,NEW DX SYPHYLIS,METH ADIC,[id number] DIAGNOSES: - COVID-19 - Unspecified pre-existing hypertension complicating , second trimester - Essential (primary) hypertension - Allergy status to sulfonamides - Nicotine dependence, cigarettes, uncomplicated - 18 weeks gestation of - Abscess of the breast and nipple - Other specified bacterial agents as the cause of diseases classified elsewhere - Other residential (current) drug therapy - Allergy status to sulfonamides - Other stimulant abuse, uncomplicated - Other specified bacterial agents as the cause of diseases classified elsewhere - Nicotine dependence, cigarettes, uncomplicated - Other viral diseases complicating , second trimester - Syphilis complicating , second trimester - Allergy status to other antibiotic agents - Necrotizing fasciitis - Other stimulant abuse, uncomplicated - Drug use complicating , second trimester - Gangrene, not elsewhere classified - 18 weeks gestation of - COVID-19 - Drug use complicating , second trimester - Other viral diseases complicating , second trimester - Unspecified pre-existing hypertension complicating , second trimester - Allergy status to other antibiotic agents - Syphilis complicating , second trimester - Other specified postprocedural states - Diseases of the circulatory system complicating , second trimester - Gangrene, not elsewhere classified - Smoking (tobacco) complicating , second trimester - Smoking (tobacco) complicating , second trimester - Other terminal block assembler (current) drug therapy - Other specified postprocedural states - Abscess of breast associated with , second trimester - Abscess of breast associated with , second trimester - Diseases of the circulatory system complicating , second trimester [email or web address]
--- NOTE | 2022-01-21 12:50 | NUR ---
PATIENT ARRIVED ON MED/SURG VIA STRETCHER FROM ER AND WALKED FROM STRETCHER IN THE HALLWAY IN TO THE ROOM, USED THE RESTROOM AND HAD A BM, AND THEN WALKED TO THE BED. PATIENT VERY STEADY ON HER FEET. NO DIZZINESS OR NAUSEA. PATIENT HAVING 3/10 PAIN IN THE LEFT BREAST WHICH IS AT HER COMFORT LEVEL. HAS LIDOCAINE CREAM ON THE BREAST PLACED IN ED COVER WITH GAUZE AND TAPE. VS STABLE, LUNGS CLEAR, BT ACTIVE, [place], A+O X4, AND NO NUMBNESS OR TINGLING TO EXTREMETIES. IV FLAGYL AND CIPRO DONE INFUSING AND LR AT 85MLS/HR CURRENTLY RUNNING.SKIN IS INTACT EXCEPT JUST BELOW THE LEFT BREAST NIPPLE THE AREA IS RED AND FROM ED REPORT IT WAS NOT OPEN, BUT NOW IS DRAINING THICK YELLOW DRAINAGE. NEW GAUZE AND SILK TAPE IN PLACE. PATIENT RESTING QUIETLY IN BED. CALL LIGHT IN REACH.
--- NOTE | 2022-01-21 12:53 | NUR ---
PATENT ENGINEER HER INTERVIEWING THE PATIENT AT THIS TIME.
--- NOTE | 2022-01-21 13:09 | NUR ---
HERE TO SEE PATIENT.
--- NOTE | 2022-01-21 13:09 | NUR ---
PRE OP WIPE DOWN COMPLETED BY THIS DOMINGO AND PATT MCDONALD
--- NOTE | 2022-01-21 14:02 | NUR ---
HEART TONES CHECKED WITH PORTABLE DOPPLER. HEART RATE IN MID 140s.
--- NOTE | 2022-01-21 14:41 | NUR ---
THIS RN RETURNED FROM LUNCH AND PATIENT IS CURRENTLY DOWN IN SURGERY.
--- NOTE | 2022-01-21 15:15 | NUR ---
01/21/22 1515 Sheets,Lindsay 1455 PT ARRIVED TO PACU WITH ORAL AIRWAY IN PLACE, 6L VIA MASK, RESP EVEN AND UNLABORED. HEART TONE 130S WITH CASSIE RN AT BEDSIDE. SMALL BUMP UNDER PT RIGHT SIDE FROM OR. 1507 PT WOKE TO TACTILE STIUMULI AND ORAL AIRWAY REMOVED. PT REACHING FOR HER FACE AND O2 MASK REMOVED. PT REPORTS PAIN IN BREAST, 4/. PT EASILY FALLS BACK TO SLEEP WHILE TALKING TO RN. VSS. HOB INCREASED 1515 HOB INCREASED PER REQUEST.
--- NOTE | 2022-01-21 16:15 | NUR ---
PATIENT ARRIVED BACK FROM PACU IN HER HOSPITAL BED A+O, VS STABLE, AFTERNOON ASSESSMENT BEGNIN EXCEPT FOR SURGICAL SITE OF LEFT BREAST WITH SEROSANGUINOUS DRAINAGE ON GAUZE BELOW SILK SURGICAL TAPE. PATIENT ARRIVED AT 1550. LR BACK RUNNING AT 85MLS/HR. PATIENT SAYS PAIN IS 10/10 BUT IS CALM AND COOPERATIVE. PATIENT AMBULATED TO THE RESTROOM AND BACK TO BED INDEPENDENTLY. PATIENT STILL FEELING A LITTLE ITCHTY FROM OR AND WANTS SCD'S OFF AT THIS TIME. CALL LIGHT IN REACH. THIS RN GOING TO GET PAIN MEDS.
--- NOTE | 2022-01-21 16:29 | NUR ---
THIS RN BACK IN AND GAVE 1 PAIN PILL ALONG WITH TO PUDDINGS AND A YOGART PATIENT IS HUNGRY AND HAS BEEN DRINKING SOME WARM TEA I BROUGHT HER, PATIENT DENIES ANY OTHER CARE NEEDS AT THIS TIME. CALL LIGHT IN REACH AND PATIENT ALERT AND ORIENTED.
--- NOTE | 2022-01-21 17:21 | NUR ---
POST-OP VS REMAIN STABLE AND PATIENT'S LEFT BREAST PAIN DOWN TO 4/10 AND SHE IS COMFORTABLE WITH THAT. BREAST DRESSING DRAINAGE OUTLINED IN BLACK, NO ESSENTIAL CHANGE FROM POST-OP. PATIENT DRINKING HER TEA AND DENIES ANY CARE NEEDS AT THIS TIME. CALL LIGHT IS IN REACH.
--- NOTE | 2022-01-21 17:35 | NUR ---
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 CALL LIGHT IN REACH.
--- NOTE | 2022-01-21 17:36 | NUR ---
MED REC COMPLETE
--- NOTE | 2022-01-21 18:16 | NUR ---
THIS RN CALLED TO SEE WHAT HIS PLAN WAS FOR MONITORING HEART TONES. SAID HE WOULD BE CONTACTING [facility] TO COME AND DO THAT AND THAT HE WAS JUST FINISHING UP HIS DICTATION ON HIS VISIT WITH THE PATIENT. VS REMAIN STABLE FOR PATIENT AT THIS TIME AND A LATE DINNER TRAY WAS JUST DELIVERED TO THE PATIENT. CALL LIGHT IN REACH.
--- NOTE | 2022-01-21 18:40 | NUR ---
HEART TONES BY DOPPLER: 140-158 BPM.
--- NOTE | 2022-01-21 18:52 | NUR ---
[facility] NURSE CAME BY AND INFORMED THIS RN PATIENT'S FHT WERE NORMAL ON THE BABY, BUT THAT WHEN LISTENING TO THEM IN THE ROOM THE PATIENT BECAME VERY TEARFUL. THIS RN WENT DOWN TO CHECK ON PATIENT AND SHE IS JUST FEELING VERY OVERWHELMED AND I SAT AND ENCOURAGED HER A FEW MINUTES AND TOOK HER FINAL POST-OP VS WHICH WERE STILL NORMAL. PATIENT HAS STOPPED CRYING AND I HAVE RETURNED FROM THE NURSES STATIONS DESK. [facility] INFORMED THIS RN THAT HE DID NOT WANT THE PATIENT TO HAVE ANY TORADOL DUE TO THE . THIS RN CALLED TO DC THE TORADOL AND LEFT A MESSAGE FOR HIM TO CALL BACK. THIS RN RECHECKED THE ORDERS AND TORADOL HAS ALREADY BEEN DC'D.
--- NOTE | 2022-01-21 19:13 | NUR ---
CALLED BACK AND CONFIRMED THE TORADOL WAS DC'D.
--- NOTE | 2022-01-21 20:56 | NUR ---
PT ASSESSMENT COMPLETE - LEFT BREAST DRSG WITH LG SHADOW ON IT. NO DRAINAGE. PT EMOTIONAL, SOMEWHAT AGITATED. IV FUSING, I/O WNL.
--- NOTE | 2022-01-21 21:05 | NUR ---
pt asking for shower - call to dr. chand to ask - not at this time due to surgery in am.
--- NOTE | 2022-01-21 22:20 | NUR ---
THIS RN AND CHARGE FRACISCO MORALES, IN TO GIVE PT PO TYLENOL AND LET HER KNOW DR SALCEDO SAID NO SHOWER - PT WAS ALREADY EMOTIONAL WHEN STAFF ENTERED. WARM BED BATH WIPES PROVIDED, AND LET HER KNOW THAT SHE COULD BRUSH TEETH, WASH FACE. PT DISTANT AND DECLINED OTHER OFFERS.
--- NOTE | 2022-01-21 23:57 | NUR ---
RN FOUND PT STANDING STARING AT THE WALL, IV PUMP BEEPING - DISTAL OCCLUSION, PT BACK TO BED - HAD BEEN UP TO VOID 400 ML IN BATHROOM. PT GIVEN BLKT TO POSITION HAND SO IV WOULD NOT OCCLUDE. WM BLKT GIVEN - FLAT AFFECT. CALL LIGHT IN REACH -
--- NOTE | 2022-01-22 01:14 | NUR ---
rn in to answer call light for pump beeping, found pt in bed in the highest elevation position - pt admits that she reached over the rail and put the bed up because she wanted to. educated pt and repositioned bed in the low position - for safety. pt denies needs. call light in reach.
--- NOTE | 2022-01-22 01:56 | NUR ---
HOT TEA PROVIDED PER PATIENT'S REQUEST.
--- NOTE | 2022-01-22 02:58 | NUR ---
iv beeping, pt up to void 600 ml yellow clear urine, back to bed, wm blkt given, no change to left breast dresg. call light in reach.
--- NOTE | 2022-01-22 03:07 | NUR ---
DISCUSSED WITH POWERHOUSE MECHANIC HELPER - CONSULT FOR CASE MANAGMENT AFTER DR PIERCE NOTE ABOUT PT NEEDING ASSISTANCE WITH FOLLOW UP FOR HIGH RISK AND ALREADY INVOLVEMENT IN CRIMINAL JUSTICE SYSTEM. CONSULT PLACED TO ASSIST WITH TRANSPORTATION AND CONNECTION TO [place] [facility].
--- NOTE | 2022-01-22 05:06 | NUR ---
pt in room, eyes closed, resp even, call light in reach.
--- NOTE | 2022-01-22 05:43 | NUR ---
PT SLEEPING SOUNDLY, RN AWAKENED PT FOR SCHEDULED TYLENOL PO. NO CHANGE TO LEFT BREAST DRSG - WM BLKT PROVIDED.
--- NOTE | 2022-01-22 06:30 | NUR ---
pt eyes closed, resp even, call light in reach.
--- NOTE | 2022-01-22 07:09 | NUR ---
Report from Debora Schmidt RN. Sleeping, lying in bed. Respirations even and unlabored. Allowed to rest at this time.
--- NOTE | 2022-01-22 08:21 | NUR ---
HEART TONES BY DOPPLER PER PIERCE DO: 140-162 BPM
--- NOTE | 2022-01-22 08:34 | NUR ---
Sitting up in bed. Eating breakfast. AM medications administered as prescribed. Takes without difficulty. States she would liket go outside to vape. Educated patients are not allowed to leave the floor by our policy. Verbalizes understanding. Requesting dressing to left breast be changed. This nurse will change after patient is done eating breakfast. Denies other needs at this time. IV fluids infusing.
--- NOTE | 2022-01-22 09:20 | NUR ---
Previous dressing saturated. Dressing changed by this nurse. Loop drain remains in place. Gauze and silk tape applied to wound in left breast.
--- NOTE | 2022-01-22 09:29 | NUR ---
PT IN BED. VITALS AND IS AND OS COMPLETE. PT REQ SO. SO GIVEN. NO FURTHER NEEDS.
--- NOTE | 2022-01-22 09:50 | NUR ---
Spoke with pt and caught up with her from her admission in October. Pt attended [facility] for 60 days, but was "kick out" for not following their rules. She met her care home time, so she no longer has this concern. She has not made amends with her family, she is staying with a friend. She has had one relapse since leaving rehab and used meth. She is now 31 weeks gestation and has an appt with [facility] in [place] tomorrow as she is considered high risk . MELODY Ndiaye, was able to get her transport for tomorrow through [employer]/ [place]. She states she has one legal issue remaining which is a restraining order from her sister. She states she is doing better at this time and is focusing on herself and attempting to work with [facility]. She does not want a PCP and plans to cont. to use [facility] for any medical needs. She is also seeing Dr. Rodriguez for OB. She denies any needs and plans on dc to friends home today. Dr Pastor has given her follow up instructions.
[2022-01-22] MEDS ORDERED: BACTRIM DS TAB1 EACH PO (10:18)
[2022-01-22] MEDS ORDERED: AUGMENTIN 500-1 EACH PO (10:19)
[2022-01-22] MEDS ORDERED: ACETAMINOPHEN500 MG PO (10:20)
--- NOTE | 2022-01-22 10:58 | OR ---
[facility] [address], [place] [address] Signed DATE OF OPERATION: 01/21/2022 SURGEON: Duane Salcedo MD PREOPERATIVE DIAGNOSES: 1. Recurrent left breast abscess. 2. 31 weeks intrauterine gestation. POSTOPERATIVE DIAGNOSES: 1. Recurrent left breast abscess. 2. 31 weeks intrauterine gestation. PROCEDURES: 1. Exam under anesthesia. 2. Incision and drainage and debridement of left breast tissue including abscess. 3. Placement of loop Good drain and wound packing NuGauze. ANESTHESIA: General, LMA. Eduar Peter CRNA. INDICATIONS: This 36-year-old woman, who is 31 weeks . She was seen by me at 18 weeks of gestation previously, where she had recently been in [place] [facility] abuse. She was additionally found at that time to have syphilis, subsequently noted to have tuberculosis and also with a significant left breast abscess. Incision and drainage and debridement was undertaken at that time, the pathogen was found to be Actinomyces. She did require wound VAC dressing for short amount of time, but ultimately was able to have wound closure without problem. She has developed recurrent erythema pointing in the 4 o'clock position of the left areola with tenderness and findings consistent with recurrent abscess. She is admitted at this time to undergo incision and drainage and debridement of this lesion as well. She has undergone OB evaluation by Dr. Saniya Rodriguez, confirming a 31-week intrauterine gestation with normal heart tones and so on. The risks of bleeding, infection, recurrent disease, and other unforeseen complications were reviewed with her. She understands and wished to proceed with drainage and debridement as recommended. FINDINGS: Some necessitation had already occurred. There was a cavity approximately 6 cm in Electronically Signed By: DUANE SALCEDO MD 01/22/22 1058 PATIENT NAME: LE LOVE OPERATIVE REPORT DATE OF : 83 REPORT #: [id number] PHYSICIAN: DUANE SALCEDO MD PCP: NO PRIMARY CARE PHYSICIAN REPORT IS CONFIDENTIAL AND NOT TO BE RELEASED WITHOUT AUTHORIZATION [facility] [address], [place] [address] Signed depth, 2 cm in width concordant to ultrasound that was performed through the emergency room today. Necessitation through the center portion of the nipple was also noted. Debridement and drainage, gram stain were obtained. A counter incision was made allowing for placement of a quarter-inch Good drain. The wound was packed with quarter-inch iodoform gauze. She tolerated procedure well. DESCRIPTION OF PROCEDURE: The patient was brought to the operating room, given a general anesthetic by LMA technique. Preoperative antibiotics, Cipro and Flagyl had already been given. After satisfactory anesthesia and placement of sequential compression device stockings and elevation of the right hip, the left breast was prepared with a Betadine based solution and draped sterilely. A small incision was made in the 4 o'clock position, extended in the circumareolar area. There was a small hole in the area already, having had some necessitation of pathogens already. Using hemostats, loculations were broken up and some necrotic fat debrided and removed. The cavity extended inferiorly. A counter incision was made in the inferior aspect of the breast using a quarter-inch loop Kerman. The drain was placed and tied in a loop. Further dissection with hemostat was undertaken in the subareolar complex noting egress of purulent material through the central portion of the nipple. The hemostat was directed through the central portion of the nipple and complete drainage undertaken. Irrigation was undertaken. Gram stain and cultures have been obtained. The wound was then packed with quarter-inch NuGauze and gauze dressing was applied. She tolerated the procedure well, was extubated and taken to the recovery room in good condition. CONCLUDING DIAGNOSIS: Subareolar breast abscess (recurrent) with concurrent 31-week gestation. MD HAYLEY Norman/MODL /[id number] cc: Killian Rodriguez DO Electronically Signed By: DUANE SALCEDO MD 01/22/22 1058 PATIENT NAME: EL LOVE OPERATIVE REPORT DATE OF : 83 REPORT #: [id number] PHYSICIAN: DUANE SALCEDO MD PCP: NO PRIMARY CARE PHYSICIAN REPORT IS CONFIDENTIAL AND NOT TO BE RELEASED WITHOUT AUTHORIZATION [address] [address] Signed Ludin Esteves MD Copies: KILLIAN RODRIGUEZ MICHAEL JOHN MD ~ Electronically Signed By: DUANE SALCEDO MD 01/22/22 1058 PATIENT NAME: LE LOVE ADÁN OPERATIVE REPORT DATE OF : 83 REPORT #: [id number] PHYSICIAN: DUANE SALCEDO MD PCP: NO PRIMARY CARE PHYSICIAN REPORT IS CONFIDENTIAL AND NOT TO BE RELEASED WITHOUT AUTHORIZATION
--- NOTE | 2022-01-22 10:58 | HP ---
[facility] [address], [place] [address] Signed ADMISSION DATE: 01/21/2022 REASON FOR ADMISSION: Recurrent left breast abscess. HISTORY OF PRESENT ILLNESS: This 36-year-old Moroc[place] woman, who is 31 weeks . She is known to me from the past at the time she was 18 weeks , at which time she developed a breast abscess with necrosis on her left side. This required not only incision and drainage, but debridement and ultimately a wound VAC for remedy. 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 Concurrently at that time, the patient was positive for COVID, had active syphilis and ongoing methamphetamine abuse. She returns to the emergency room today with swelling and erythema in an area of possible necessitation in the inferior aspect of the left areolar margin at the 4 o'clock position. The previous problem was at the 8 o'clock area. She has erythema and tenderness. She was evaluated by Dr. Zapata and imaging studies including ultrasound demonstrated a complex fluid collection extending deep to the nipple measuring 4.9 cm in maximum dimension. A developing abscess was declared. She is admitted at this time for further evaluation and care to include incision and drainage. PERTINENT PHYSICAL EXAMINATION: GENERAL: Shows a well-developed [place]oc[place] woman, who does not look systemically toxic. VITAL SIGNS: Temperature is 98.1, pulse 96, blood pressure 106/84, and O2 saturation 98% on room air. NECK: Shows no thyromegaly or cervical adenopathy. CHEST: Clear. HEART: Regular. ABDOMEN: With a gravid uterus. There was no sign of tenderness. tones were not solicited at this time. EXTREMITIES: Lower extremities showed no DVT symptoms or signs that should say. BREASTS: Examination of the left breast shows erythema and tenderness in the periareolar area at the 4 o'clock position. The previous area of incision, drainage, and debridement is normal. She has no axillary adenopathy. LABORATORY STUDIES: Showed a white count of 7.7, hematocrit 33.0, platelets 356,000. Chem profile is Electronically Signed By: DUANE SALCEDO MD 01/22/22 1058 PATIENT NAME: LE LOVE HISTORY AND PHYSICAL DATE OF : 83 REPORT #: [id number] PHYSICIAN: DUANE SALCEDO MD PCP: NO PRIMARY CARE PHYSICIAN REPORT IS CONFIDENTIAL AND NOT TO BE RELEASED WITHOUT AUTHORIZATION [facility] [address], [place] [address] Signed essentially normal. Creatinine is 0.54. Liver enzymes, alkaline phosphatase 141. COVID serology is negative. Drug tox screen was not obtained. ASSESSMENT: The patient has recurrent abscess of the left breast. She has been episodically free of drug abuse from methamphetamine, though she does admit that she "has had episodes." Indeed, she feels that this episode was related to recent methamphetamine use episode, though it is rather unlikely. I have recommended admission and incision and drainage of the complex abscess with debridement as appropriate. I have consulted Dr. Saniya Rodriguez, [facility] MAT INSPECTOR, who will be seeing the patient. She has seen Dr. Esteves, who recommended she be seen at [facility] in [place] as she is consider "high risk" gestation. Notably, the patient has had several children in the past, one of them at 29 weeks. There is no evidence of labor at this time. Indeed, the heart tones had not yet been verified. We discussed the risks of bleeding, infection, recurrent disease, and need for elaborate treatment methods depending on findings. She understands wished to proceed. MD HAYLEY Norman/ARVINL /[id number] cc: MD Cory Chambers DO Dr. Powell Copies: MARQUISE ESTEVES MD, JAMES D DO ~ Electronically Signed By: DUANE SALCEDO MD 01/22/22 1058 PATIENT NAME: LE LOVEIVANJudy HISTORY AND PHYSICAL DATE OF : 83 REPORT #: [id number] PHYSICIAN: DUANE SALCEDO MD PCP: NO PRIMARY CARE PHYSICIAN REPORT IS CONFIDENTIAL AND NOT TO BE RELEASED WITHOUT AUTHORIZATION
--- NOTE | 2022-01-22 11:05 | NUR ---
DC instructions given to patient. Verbalizes understanding. Ambulates out of facility for care ride at this time. DC to home.
== END 2022-01-22 11:05 | disposition home or self-care (01) ==
LOC: ED 08:39 → MS 08:41
PROVIDERS: ADMIT Surgery; ATTEND Surgery
PROC: 0H9U00Z Drainage of Left Breast with Drainage Device, Open Approach (ICD-10-PCS; principal; 2022-01-21 13:30)
DX: O91.113 Abscess of breast associated with pregnancy, third trimester (principal); O99.333 Smoking (tobacco) complicating pregnancy, third trimester; F17.210 Nicotine dependence, cigarettes, uncomplicated; O99.323 Drug use complicating pregnancy, third trimester; F15.11 Other stimulant abuse, in remission; O09.523 Supervision of elderly multigravida, third trimester; O34.219 Maternal care for unspecified type scar from previous cesarean delivery; O98.113 Syphilis complicating pregnancy, third trimester; A53.9 Syphilis, unspecified; O36.1930 Maternal care for other isoimmunization, third trimester, not applicable or unspecified; O16.3 Unspecified maternal hypertension, third trimester; Z20.822 Contact with and (suspected) exposure to COVID-19; Z3A.31 31 weeks gestation of pregnancy; Z88.2 Allergy status to sulfonamides; Z88.1 Allergy status to other antibiotic agents; Z86.19 Personal history of other infectious and parasitic diseases; Z86.11 Personal history of tuberculosis
CPT/HCPCS: 00400; 36415; 76642; 80053; 85025; 87205; 87502; A9270; C9803; G0378; J0744; J1200; J2405; J2704; J3010; J7040; J7121; U0003

== ENCOUNTER 2022-01-27 07:31 | Emergency (ER) | payer OTHER ==
[~2022-01-27] VITALS: Ht 157.5 cm; Wt 71.2 kg
[~2022-01-27 07:31] MED LIST changes: +AUGMENTIN 500-1 EACH PO; +BACTRIM DS TAB1 EACH PO
--- OUTSIDE RECORDS SUMMARY | 2022-01-27 07:36 | XMS ---
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 10/28/2021 13:09 - Patient eloped before treatment completed. - Patient with suicidal and/or homicidal ideations eloped. - Patient eloped with IV in place. Details: PATIENT LWBS Elopement at [facility] 10/10/2020 18:29 - Other Details: PATIENT LWBS. CRITERIA MET - [facility] - 3 Facilities in 90 Days - [facility] - 2 Visits in 30 Days - 6 ED Visits in 6 Months CARE PROVIDERS There are no care providers on record at this time. Angel has no Care Guidelines for this patient. Care History Medical/Surgical 11/01/2019 [facility] - \T\middot;\T\nbsp; PATIENT WOULD BENEFIT FROM [facility]-PLEASE DISCUSS \T\middot;\T\nbsp; PLEASE CONTACT [facility]- IF PATIENT ACCEPTS SERVICES- [phone] \T\middot;\T\nbsp; [facility] CAN PROVIDE PATIENT WITH CAUSTIC ROOM OPERATOR AND HELP WITH COMMUNITY RESOURCES E.D. VISIT COUNT (12 MO.) 1 Avinash Stephens 1 Avinash Claudio 5 [facility]. TOTAL 7 NOTE: Visits indicate total known visits. ED/UCC VISIT TRACKING (12 MO.) 01/27/2022 07:31 [facility] [place] TYPE: Emergency COMPLAINT: - NECK PAIN 01/21/2022 08:40 [facility] [place] TYPE: Emergency COMPLAINT: - LUMP ON BREAST 12/08/2021 18:25 Avin[facility] [place] TYPE: Emergency DIAGNOSES: - EMS Cyst - Unspecified lump in the left breast, overlapping quadrants 11/25/2021 21:28 [facility] [place] TYPE: Emergency DIAGNOSES: - Abdominal Pain, 24 Wks - Unspecified abdominal pain 10/30/2021 09:08 [facility] [place] TYPE: Emergency COMPLAINT: - BLISTERED NIPPLE 10/28/2021 13:09 [facility] [place] TYPE: Emergency COMPLAINT: - BLISTER UNDER NIPPLE 10/19/2021 18:33 [facility] [place] TYPE: Emergency COMPLAINT: - CHEST PRESSURE, DIAGNOSES: - Other specified diseases and conditions complicating - Allergy status to sulfonamides - Epigastric pain - 16 weeks gestation of - Allergy status to other antibiotic agents - Nicotine dependence, unspecified, uncomplicated - Maternal care for unspecified type scar from previous delivery - Smoking (tobacco) complicating , second trimester - Unspecified pre-existing hypertension complicating , second trimester INPATIENT VISIT TRACKING (12 MO.) 01/21/2022 08:41 [facility] [place] TYPE: Observation COMPLAINT: - LEFT BREAST ABSCESS, DIAGNOSES: - Nicotine dependence, cigarettes, uncomplicated - Smoking (tobacco) complicating , third trimester - Other stimulant abuse, in remission - Abscess of breast associated with , third trimester - Syphilis, unspecified - Contact with and (suspected) exposure to COVID-19 - Syphilis complicating , third trimester - Personal history of tuberculosis - 31 weeks gestation of - Maternal care for other isoimmunization, third trimester, not applicable or unspecified - Allergy status to sulfonamides - Allergy status to other antibiotic agents - Unspecified maternal hypertension, third trimester - Personal history of other infectious and parasitic diseases - Maternal care for unspecified type scar from previous delivery - Supervision of elderly multigravida, third trimester - Drug use complicating , third trimester 10/30/2021 11:12 [facility] [place] TYPE: Medical Surgical COMPLAINT: - L BRST ABS,COVID+,NEW DX SYPHYLIS,METH ADIC,PG18W DIAGNOSES: - Essential (primary) hypertension - Allergy status to sulfonamides - Nicotine dependence, cigarettes, uncomplicated - 18 weeks gestation of - Abscess of the breast and nipple - Other specified bacterial agents as the cause of diseases classified elsewhere - Other correction (current) drug therapy - Allergy status to [...] (tobacco) complicating , second trimester - Other correction (current) drug therapy - Other specified postprocedural states - Abscess of breast associated with , second trimester - Abscess of breast associated with , second trimester - Diseases of the circulatory system complicating , second trimester - COVID-19 - Unspecified pre-existing hypertension complicating , second trimester [email or web address]
[2022-01-27] MEDS ORDERED: CYCLOBENZAPRINE5 MG PO (07:50)
== END 2022-01-27 07:58 | disposition home or self-care (01) ==
LOC: ED 07:31
DX: O9A.213 Injury, poisoning and certain other consequences of external causes complicating pregnancy, third trimester (principal); S16.1XXA Strain of muscle, fascia and tendon at neck level, initial encounter; O10.913 Unspecified pre-existing hypertension complicating pregnancy, third trimester; O99.333 Smoking (tobacco) complicating pregnancy, third trimester; F17.200 Nicotine dependence, unspecified, uncomplicated; Z3A.31 31 weeks gestation of pregnancy; Z88.1 Allergy status to other antibiotic agents; Z88.8 Allergy status to other drugs, medicaments and biological substances; Z88.2 Allergy status to sulfonamides; Z79.899 Other long term (current) drug therapy
CPT/HCPCS: 99283

== ENCOUNTER 2022-12-14 12:15 | Emergency (ER) | payer OTHER ==
[~2022-12-14] VITALS: Ht 157.5 cm; Wt 67.1 kg
[~2022-12-14 12:15] MED LIST changes: +CYCLOBENZAPRINE5 MG PO
--- OUTSIDE RECORDS SUMMARY | 2022-12-14 12:19 | XMS ---
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 - Patient with suicidal and/or homicidal ideations eloped. - Patient eloped with IV in place. Details: PATIENT LWBS CRITERIA MET - [facility] - 2 Visits in 30 Days CARE PROVIDERS -[facility]- [facility] PHONE: [phone] Angel has no Care Guidelines for this patient. Care History Medical/Surgical 11/01/2019 [facility] - \T\middot;\T\nbsp; PATIENT WOULD BENEFIT FROM [facility]-PLEASE DISCUSS \T\middot;\T\nbsp; PLEASE CONTACT [facility]- IF PATIENT ACCEPTS SERVICES- [phone] \T\middot;\T\nbsp; [facility] CAN PROVIDE PATIENT WITH MAINTENANCE SUPERINTENDENT AND HELP WITH COMMUNITY RESOURCES E.D. VISIT COUNT (12 MO.) 4 GR[facility]EL Mac 1 [facility] TOTAL 5 NOTE: Visits indicate total known visits. ED/UCC VISIT TRACKING (12 MO.) 12/14/2022 12:15 [facility] [place] TYPE: Emergency COMPLAINT: - RT FOOT PAIN 11/17/2022 22:41 [facility] [place] TYPE: Emergency DIAGNOSES: [address]40[address]. SYNCOPAL . Cannabis use, unspecified with intoxication, uncomplicated . Other stimulant use, unspecified with intoxication, unspecified [id number]. Syncope and collapse 02/26/2022 22:38 [facility] [place] TYPE: Emergency COMPLAINT: - CHEST PAIN DIAGNOSES: - 34 weeks gestation of - Allergy status to other antibiotic agents - Allergy status to sulfonamides - Drug use complicating , third trimester - Other chest pain - Other specified diseases and conditions complicating - Other stimulant abuse, uncomplicated - Smoking (tobacco) complicating , third trimester - Unspecified maternal hypertension, third trimester 01/27/2022 07:31 [facility] [place] TYPE: Emergency COMPLAINT: - NECK PAIN DIAGNOSES: - 31 weeks gestation of - Allergy status to other antibiotic agents - Allergy status to other drugs, medicaments and biological substances - Allergy status to sulfonamides - Cervicalgia - Injury, poisoning and certain other consequences of external causes complicating , third trimester - Nicotine dependence, unspecified, uncomplicated - Other termite exterminator (current) drug therapy - Smoking (tobacco) complicating , third trimester - Strain of muscle, fascia and tendon at neck level, initial encounter - Unspecified pre-existing hypertension complicating , third trimester 01/21/2022 08:40 [facility] [place] TYPE: Emergency COMPLAINT: - LUMP ON BREAST INPATIENT VISIT TRACKING (12 MO.) 03/04/2022 17:07 Avinash Hernandez [place] TYPE: Womens Services DIAGNOSES: - Unspecified pre-eclampsia, third trimester - Management of labor 01/21/2022 08:41 [facility] [place] TYPE: Observation COMPLAINT: - LEFT BREAST ABSCESS, DIAGNOSES: - 31 weeks gestation of - Abscess of breast associated with , third trimester - Allergy status to other antibiotic agents - Allergy status to sulfonamides - Contact with and (suspected) exposure to COVID-19 - Drug use complicating , third trimester - Maternal care for other isoimmunization, third trimester, not applicable or unspecified - Maternal care for unspecified type scar from previous delivery - Nicotine dependence, cigarettes, uncomplicated - Other stimulant abuse, in remission - Personal history of other infectious and parasitic diseases - Personal history of tuberculosis - Smoking (tobacco) complicating , third trimester - Supervision of elderly multigravida, third trimester - Syphilis complicating , third trimester - Syphilis, unspecified - Unspecified maternal hypertension, third trimester [email or web address]
[2022-12-14] MEDS ORDERED: HYDROCODON-ACE1 EA10 PO (13:10)
[2022-12-14 14:00] VITALS: BP 119/94
== END 2022-12-14 14:00 | disposition home or self-care (01) ==
LOC: ED 12:15
DX: S92.351A Displaced fracture of fifth metatarsal bone, right foot, initial encounter for closed fracture (principal); I10 Essential (primary) hypertension; F17.200 Nicotine dependence, unspecified, uncomplicated; Z88.2 Allergy status to sulfonamides; Z88.8 Allergy status to other drugs, medicaments and biological substances; Z88.1 Allergy status to other antibiotic agents; V99.XXXA Unspecified transport accident, initial encounter
CPT/HCPCS: 73630; 99284-25

== ENCOUNTER 2024-01-06 09:27 | Emergency (ER) | payer OTHER ==
[~2024-01-06] VITALS: Ht 157.5 cm; Wt 67.7 kg
[~2024-01-06 09:27] MED LIST changes: +HYDROCODON-ACE1 EA10 PO
[2024-01-06] MEDS ORDERED: KETOROLAC TROMETHAMINE 15 MG/ML VIAL IV ONE (09:45)
[2024-01-06] MEDS ORDERED: NALOXONE 4 MG NASAL SPRAY #2 HOME.PACK NAS ONE (12:30)
[2024-01-06 13:01] VITALS: BP 131/102
== END 2024-01-06 13:03 | disposition home or self-care (01) ==
LOC: ED 09:27
DX: T40.411A Poisoning by fentanyl or fentanyl analogs, accidental (unintentional), initial encounter (principal); R40.4 Transient alteration of awareness; R07.89 Other chest pain; I10 Essential (primary) hypertension; F17.200 Nicotine dependence, unspecified, uncomplicated; Z88.1 Allergy status to other antibiotic agents; Z88.2 Allergy status to sulfonamides
CPT/HCPCS: 96374; 99284-25; J1885; J3490

== ENCOUNTER 2024-02-28 19:31 | Emergency (ER) | payer OTHER ==
[~2024-02-28] VITALS: Ht 157.5 cm; Wt 65.7 kg
[2024-02-28] MEDS ORDERED: FAMOTIDINE 20 MG/ 2 ML VIAL IV ONE (19:45)
[2024-02-28] MEDS ORDERED: ondansetron HCL 4 MG/2 ML VIAL IV ONE (19:45)
[2024-02-28 19:48] LABS: MCH 29.7 (27-36)
[2024-02-28 19:50] LABS: BASOPHILS 0.5 % (0-2); EOSINOPHILS 1.9 % (0-6); HEMATOCRIT 41.2 % (35.0-50.0); HEMOGLOBIN 13.4 g/dL (12.0-18.0); LYMPHOCYTES 39.5 % (24-44); MCHC 32.6 g/dl (30-36); MCV 90.9 fl (81-99); MONOCYTES 5.5 % (0-12); NEUTROPHILS 52.6 % (39-80); PLATELET COUNT 449 K/uL (140-440); RBC 4.53 M/ul (4.3-5.7); RDW 13.7 (10.5-15.0)
[2024-02-28 20:03] LABS: ACETAMINOPHEN 0 ug/mL (10-30); ALBUMIN 3.6 g/dL (3.4-5.0); ALBUMIN/GLOBULIN RATIO 0.78 (1.1-2.4); ALCOHOL, MEDICAL <3 ng/dL (<3); ALKALINE PHOSPHATASE 124 U/L (46-116); ALT (SGPT) 22 U/L (14-59); ANION GAP 12.2 (7-21); AST (SGOT) 19 U/L (15-37); BILIRUBIN, TOTAL 0.1 ng/dL (0.2-1.0); BUN/CREATININE RATIO 8.33 (6.0-28.6); CALCIUM 8.6 mg/dL (8.5-10.1); CARBON DIOXIDE 29 mmol/L (21-32); CHLORIDE 102 mmol/L (98-107); CREATININE, SERUM 0.84 mg/dL (0.55-1.02); GLOMERULAR FILTRATION RATE,EST 91 mL/min (>60); POTASSIUM 4.2 mmol/L (3.5-5.1); PROTEIN, TOTAL 8.2 g/dL (6.4-8.2); UREA NITROGEN 7 mg/dL (7-18)
[2024-02-28 21:02] LABS: BILIRUBIN, URINE NEGATIVE (negative); BLOOD/HGB, URINE NEGATIVE (Negative); KETONE, URINE NEGATIVE (Negative); LEUK ESTERASE, URINE NEGATIVE (negative); NITRITE, URINE POSITIVE (negative)
[2024-02-28 21:10] LABS: EPITHELIAL CELLS, URINE SQUAMOUS 2+ /lpf (0-1+)
[2024-02-28 21:11] LABS: CASTS, URINE NONE SEEN \\lpf; COLLECTION TYPE, URINE CLEAN CATCH; CRYSTALS, URINE AMORPHOUS PHOSPH 1+ (0-1+); REFLEX CULTURE, URINE No (No)
[2024-02-28 21:12] LABS: BACTERIA, URINE 3+ /hpf (negative)
[2024-02-28 21:16] LABS: AMPHETAMINES, URINE POSITIVE (NEGATIVE); BARBITURATES, URINE NEGATIVE (NEGATIVE); BENZODIAZEPINE, URINE NEGATIVE (NEGATIVE); BUPRENORPHINE, URINE NEGATIVE (NEGATIVE); CANNABINOID, URINE POSITIVE (NEGATIVE); COCAINE, URINE NEGATIVE (NEGATIVE); ECSTASY, URINE NEGATIVE (NEGATIVE); FENTANYL, URINE POSITIVE (NEGATIVE); METHADONE, URINE NEGATIVE (NEGATIVE); OPIATES, URINE NEGATIVE (NEGATIVE); OXYCODONE, URINE NEGATIVE (NEGATIVE); PHENCYCLIDINE, URINE NEGATIVE (NEGATIVE)
[2024-02-28] MEDS ORDERED: NITROFURANTOIN MONOHYD MACROCR 100 MG CAP PO ONE (21:30)
[2024-02-28] MEDS ORDERED: NALOXONE 4 MG NASAL SPRAY #2 HOME.PACK NAS ONE (21:30)
[2024-02-28] MEDS ORDERED: MACROBID 100 M100 MG PO (21:30)
[2024-02-28] MEDS ORDERED: BACTRIM DS TAB1 EACH PO (21:40)
[2024-02-28 22:41] VITALS: BP 121/87
== END 2024-02-28 22:41 | disposition home or self-care (01) ==
LOC: ED 19:31
PROVIDERS: Internal Medicine
DX: T40.411A Poisoning by fentanyl or fentanyl analogs, accidental (unintentional), initial encounter (principal); N39.0 Urinary tract infection, site not specified; I10 Essential (primary) hypertension; F17.200 Nicotine dependence, unspecified, uncomplicated; Z88.1 Allergy status to other antibiotic agents; Z88.2 Allergy status to sulfonamides
CPT/HCPCS: 36415; 71045; 80053; 80307; 81001; 84703; 85025; 87077; 87088; 87186; 96374; 96375; 99284-25; G0480; J2405; J3490

== ENCOUNTER 2024-03-20 08:37 | Emergency (ER) | payer OTHER ==
[~2024-03-20] VITALS: Ht 157.5 cm; Wt 65.6 kg
[~2024-03-20 08:37] MED LIST changes: +MACROBID 100 M100 MG PO
[2024-03-20] MEDS ORDERED: DOXYCYCLINE HY100 MG PO (10:07)
[2024-03-20] MEDS ORDERED: CLEOCIN HCL150 MG PO (10:07)
[2024-03-20 10:16] VITALS: BP 120/70
== END 2024-03-20 10:18 | disposition home or self-care (01) ==
LOC: ED 08:37
DX: L03.032 Cellulitis of left toe (principal); L03.113 Cellulitis of right upper limb; I10 Essential (primary) hypertension; F17.200 Nicotine dependence, unspecified, uncomplicated; Z88.1 Allergy status to other antibiotic agents; Z88.2 Allergy status to sulfonamides
CPT/HCPCS: 99282

== ENCOUNTER 2024-11-11 06:56 | Emergency (ER) | payer OTHER ==
[~2024-11-11] VITALS: Ht 157.5 cm; Wt 63.9 kg
[~2024-11-11 06:56] MED LIST changes: +CLEOCIN HCL150 MG PO; +DOXYCYCLINE HY100 MG PO
[2024-11-11] MEDS ORDERED: DOXYCYCLINE HY100 MG PO (07:27)
[2024-11-11 07:32] VITALS: BP 133/98
== END 2024-11-11 07:32 | disposition home or self-care (01) ==
LOC: ED 06:56
DX: N61.1 Abscess of the breast and nipple (principal); I10 Essential (primary) hypertension; F17.200 Nicotine dependence, unspecified, uncomplicated; Z88.1 Allergy status to other antibiotic agents; Z88.2 Allergy status to sulfonamides; Z79.899 Other long term (current) drug therapy
CPT/HCPCS: 99282